=== PATIENT | male | born 1980 | race Caucasian/White ===

== ENCOUNTER 2019-11-07 08:17 | Outpatient (CLI) | payer OTHER ==
--- NOTE | 2019-11-07 10:38 | MRI ---
MRI Cervical spine without contrast: HISTORY: Paresthesias of upper extremities. Tingling and numbness in bilateral arms. COMPARISON: None FINDINGS: The craniocervical junction is unremarkable. No significant cervical cord signal abnormality. Paravertebral soft tissues have a normal appearance and normal signal intensity. C1-2:No significant stenosis. C2-3: There is no disc bulge or disc herniation. The central spinal canal and neural foramina are pat ent. C3-4: There is a mild disc osteophyte complex which narrows the ventral subarachnoid space. Neural fo ramina are patent. C4-5: There is no disc bulge or disc herniation. The central spinal canal and neural foramina are pat ent. C5-6: There is no disc bulge or disc herniation. The central spinal canal and neural foramina are pat ent. C6-7: There is no disc bulge disc herniation. The central spinal canal and neural foramina are patent . C7-T1: There is no disc bulge or disc herniation. The central spinal canal and neural foramina are pa tent. T1-2: Axial imaging was not obtained to this level, no disc bulge or disc herniation is seen. Neural foramina appear grossly patent. T2-3: There is a minimal disc bulge at this level. There is a low T1 and T2-weighted signal intensity structure seen in the posterior aspect of the central canal which does appear to be extradural measuring 17 mm craniocaudal x9 mm AP. Axial imaging was not obtained through this level. This does r esult in effacement of the posterior aspect of the subarachnoid space and does appear to contact the posterior aspect of the spinal cord which in combination with mild disc bulge does results in at least mild mass effect on the spinal cord at this level. This area was not adequately imaged on this exam, and MRI of thoracic spine is recommended. IMPRESSION: 1. Incomplete imaging at the T2-3 level which is only seen on sagittal images. However, there is a lo w signal intensity structure seen in the posterior aspect of the central canal which does appear extradural and probably represents a prominent dural-based calcification. This does appear to result in mild mass effect on the spinal cord this level, without cord signal abnormality appreciated. However, axial imaging was not obtained through this level. MRI thoracic spine is recommended for fur ther evaluation with axial imaging obtained through this level. 2. Mild disc degenerative changes at the C3-4 level, but there is no significant central canal or devonte ral foraminal narrowing at this level.
== END 2019-11-07 08:18 | disposition home or self-care (01) ==
LOC: MRI 08:17
PROVIDERS: ATTEND Surgery
DX: R20.2 Paresthesia of skin (principal); M50.31 Other cervical disc degeneration, high cervical region
CPT/HCPCS: 72141

== ENCOUNTER 2019-11-07 09:33 | Outpatient (CLI) | payer OTHER ==
[2019-11-07 12:06] LABS: Hemoglobin 15.2 g/dL (14.0-18.0); Mean Corpuscular HGB CONC 34.2 g/dL (32.0-36.0); Mean Corpuscular Hemoglobin 29.2 pg (27.0-31.0); Mean Corpuscular Volume 85.5 fL (78.0-98.0); Mean Platelet Volume 8.2 fL (7.4-10.4); Platelet Count 236 thou/uL (130-400); RBC Distribution Width 13.6 % (11.5-14.5); Red Blood Cell (RBC) Count 5.21 mill/uL (4.70-6.10); White Blood Cell (WBC) Count 8.8 thou/uL (4.8-10.8)
[2019-11-07 12:12] LABS: INR-International Normal Ratio 0.9; PTT 26.3 SEC (22.9-36.1); Prothrombin Time 12.6 SEC (12.0-14.7)
[2019-11-07 12:23] LABS: Anion Gap 16 mmol/L (10-20); BUN (Urea Nitrogen) 12 mg/dL (8.9-20.6); Calc. Creatinine Clearance 0 mL/min (70-130); Carbon Dioxide 25 mmol/L (22-29); Chloride 101 mmol/L (98-107); Estimated GFR-MDRD Greater than 90; Glucose 219 mg/dL (70-105); Potassium 4.8 mmol/L (3.5-5.1); Sodium 137 mmol/L (136-145)
== END 2019-11-07 09:34 | disposition home or self-care (01) ==
LOC: LABBT 09:33
PROVIDERS: ATTEND Surgery
DX: Z01.818 Encounter for other preprocedural examination (principal); M48.062 Spinal stenosis, lumbar region with neurogenic claudication; M54.5 Low back pain
CPT/HCPCS: 80048; 85027; 85610; 85730; 93005; 93010

== ENCOUNTER 2019-11-08 20:03 | Inpatient (IN) | payer OTHER ==
[2019-11-08] MEDS ORDERED: Pantoprazole 40 MG VIAL ONE (20:58)
[2019-11-08] MEDS ORDERED: Dexamethasone 10 MG/ML VIAL ONE (20:58)
--- NOTE | 2019-11-08 21:46 | CT ---
CT of the thoracic spine: 11/08/2019 HISTORY: Paralysis TECHNIQUE: Axial CT imaging at 3.75 mm intervals through the thoracic spine with coronal and sagittal reformatted imaging FINDINGS: Evaluation for central canal and/or neural foraminal stenosis is limited on routine CT exam ination. No significant anterolisthesis or retrolisthesis. The visualized lung parenchyma appears grossly unremarkable. Midline prominent osteophyte formation noted posterior to the thecal sac at the T2-3 level. Mild disc osteophyte formation noted at T2-3 as well. At T2-3 there is at least moderate central canal stenosis. Prominent left-sided facet hypertrophy at T3-4 with associated severe left-sided neural foraminal maru nosis. At T4-5 there is prominent facet hypertrophy on the right with severe right neural foraminal stenosis. There is also prominent posterior osteophyte formation with moderate/severe central canal s tenosis, particularly on the right. There is posterior osteophyte at T5-6 and T6-7 with at least mild central canal stenosis. There is anterior osteophyte formation at T6-7. Mild posterior osteophyte formation noted at T7-8. At T9-10 there is mild central posterior osteophyt e. There is multilevel anterior osteophyte formation to the right of midline including the T6-7 through T9-10 levels. No acute fracture or dislocation. No worrisome lytic or blastic bone lesion. IMPRESSION: Degenerative change with significant multilevel central canal and neural foraminal stenos is, not optimally assessed on this examination. Significant central canal stenosis noted at T4-5 and to a lesser degree, T2-3. If symptoms persist, follow-up thoracic spine MRI suggested.
[2019-11-08 22:55] VITALS: BMI 46.9
[2019-11-09] MEDS ORDERED: Acetaminophen 325 MG TAB PO PRN (00:31)
[2019-11-09] MEDS ORDERED: HYDROcodone/Acetaminophen 5/325 mg Tablet PO PRN (00:31)
[2019-11-09] MEDS: Sodium Chloride 0.9% 1,000 ML IV SCH ×3 (01:11→23:57)
[2019-11-09] MEDS: Dexamethasone 4 MG TAB PO SCH ×5 (01:11→23:56)
[2019-11-09] MEDS: Loperamide HCl 2 MG CAP PO PRN ×5 (02:10→12:44)
[2019-11-09] MEDS ORDERED: Diazepam 5 MG TAB PO PRN (02:11)
--- NOTE | 2019-11-09 03:34 | HP ---
CHIEF COMPLAINT: Chronic lower extremity neurologic deficits, acute onset of arms paraesthesias and weakness. HISTORY OF PRESENT ILLNESS: Mr. Mendez is a 39-year-old gentleman, who is well known to our service, who presented to [facility] earlier this evening for complaints of acute onset, ascending paraesthesias up to level of his neck with associated arms paraesthesias bilaterally and weakness. Per ER report, the patient was essentially paralyzed from the neck down upon EMS arrival, with flaccid paralysis of the bilateral upper and lower extremities. Upon ED arrival, he was beginning to have return of sensation to his arms. The patient was recently seen by our team and is scheduled to undergo surgery on 11/10/2019. He will be undergoing L2 through S1 laminectomies, partial facetectomies and foraminotomies. The patient has longstanding weakness and paraesthesias in his bilateral lower extremities. Has previously rendered him with gait difficulties requiring use of walking cane to ambulate. More recently, he has been using a wheelchair over the past 4 to 5 days. The patient had an MRI of the cervical spine completed yesterday, which revealed degenerative disk disease and mild central stenosis at C3-C4, otherwise no significant cervical stenosis or other abnormalities of the cervical spine. However, on this MRI of the cervical spine, we were able to visualize a calcified ligament at the T2-T3 level with mild mass effect on the spinal cord. He has had no recent imaging of his thoracic spine completed. PHYSICAL EXAMINATION: I was unable to see the patient in the emergency department due to being called to an emergent surgery. I was able to observe him once he was admitted to the surgical floor and completed an exam at approximately 1 a.m. on 11/09/2019. GENERAL: The patient was awake, alert, and appropriate. NEUROLOGIC: He was able to move both his upper and lower extremities without difficulty. He had excellent strength throughout his upper and lower extremity myotomes bilaterally, with the exception of inability to dorsiflex or plantarflex his right foot. He states this is longstanding, and it has been observed during our prior examinations. The patient reports that he has subjective decreased sensation to pain and temperature of the left lower extremity. Gait was not assessed; however, the patient's nurse reports that he has been able to ambulate to the rest room and urinate without difficulty earlier this evening. IMPRESSION/DIAGNOSES: 1. Lumbar stenosis with chronic bilateral lower extremity paraesthesias and weakness, plan for L2-S1 laminectomies, partial facetectomies, and foraminotomies on 11/10/2019. 2. Acute onset upper extremity paraesthesias with paralysis, currently resolved. 3. 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 PLAN: I have discussed the patient's case and all imaging with Dr. Ellsworth. Plan at this time is to have a CT of the thoracic spine without contrast completed tonight, as well as an MRI of the thoracic spine completed in the morning. The patient exhibits some anxiety with having MRI completed, therefore, I have ordered Valium to be given 30 minutes prior to the MRI. The patient reports that he is having diarrhea, so I have ordered Imodium for this. Per nurse report, the patient has been able to ambulate to the rest room and void without difficulty. Therefore, I am holding a Paiz catheterization at this time; however, I have ordered q.4 hour bladder scan with in-and-out catheterization for findings of greater than 300 mL of urinary retention. So, the patient will require 3 in-and-out catheterizations. We will then place a Paiz. The patient may ambulate with assistance. The patient was given a loading dose of 10 mg Decadron in the emergency department. I have subsequently ordered 6 mg Decadron q.4 hours as well as daily Protonix. Plan at this time is to get imaging of the thoracic spine and remove the calcified ligament in addition to his previously planned lumbar surgery for Sunday. We will see patient tomorrow to further review the surgical plan; however, the patient has been informed of this change tonight when I saw him. He states understanding and all questions were answered. We will follow up with patient in the morning, or sooner for any neurologic changes or concerns. This was a 50-minute initial patient encounter, in which greater than 50% of the time was spent in counseling. The remaining time was spent in review of records, imaging, evaluation of the patient, examination, and formulation of a plan. Job ID: [id number]
[2019-11-09] MEDS ORDERED: Diazepam 5 MG TAB PO SCH (04:00)
--- NOTE | 2019-11-09 11:58 | MRI ---
EXAM: MRI thoracic spine without contrast HISTORY: Abnormality seen in the posterior canal at the T2/3 level on the cervical MRI performed rece ntly. COMPARISON: MRI cervical spine 11/07/2019 TECHNIQUE: Multiplanar multisequence MR images were obtained of the thoracic spine without contrast. FINDINGS: This exam is limited secondary to motion artifact. The vertebral bodies and intervertebral discs demonstrate normal height and alignment without fractur e or subluxation. Generalized disc desiccation is seen. The visualized cord demonstrates normal signal throughout. The prevertebral soft tissues are unremarkable. No paraspinal soft tissue abnormality is seen. T1/2: No significant posterior bulge or protrusion. No posterior facet arthrosis. No central canal stenosis. No neural foraminal stenosis. T2/3: No significant posterior bulge or protrusion. Moderate bilateral posterior facet arthrosis. Th is causes a prominent seen posteriorly on the prior MRI. Moderate central canal stenosis. No neural foraminal stenosis. T3/4: Minimal disc osteophyte complex. No posterior facet arthrosis. No central canal stenosis. No neural foraminal stenosis. T4/5: Small disc osteophyte complex. Moderate bilateral posterior facet arthrosis. Moderate central canal stenosis. No neural foraminal stenosis. T5/6: A tiny central protrusion is seen. No posterior facet arthrosis. Mild central canal stenosis. No neural foraminal stenosis. T6/7: No significant posterior bulge or protrusion. No posterior facet arthrosis. No central canal stenosis. No neural foraminal stenosis. T7/8: No significant posterior bulge or protrusion. No posterior facet arthrosis. No central canal stenosis. No neural foraminal stenosis. T8/9: No significant posterior bulge or protrusion. No posterior facet arthrosis. No central canal stenosis. No neural foraminal stenosis. T9/10: A tiny central protrusion is seen. No posterior facet arthrosis. Mild central canal stenosis . No neural foraminal stenosis. T10/11: No significant posterior bulge or protrusion. Mild to moderate bilateral posterior facet art hrosis. Mild to moderate central canal stenosis. No neural foraminal stenosis. T11/12: No significant posterior bulge or protrusion. No posterior facet arthrosis. No central tere l stenosis. No neural foraminal stenosis. T12/L1: No significant posterior bulge or protrusion. No posterior facet arthrosis. No central tere l stenosis. No neural foraminal stenosis. IMPRESSION: Degenerative changes of the thoracic spine as above. The abnormality seen on prior cervical spine MRI represents posterior facet disease at T2/3.
--- NOTE | 2019-11-09 12:38 | PRG ---
DATE OF SERVICE: 11/09/2019 Mr. Mendez is known to me as we had planned for L2 to S1 laminectomies, partial facetectomies, and foraminotomies tomorrow. He presented with a concern of thoracic myelopathy and in fact, a cervical MRI demonstrated no worrisome stenosis in the cervical spine, however, what appeared to be calcified extradural mass at T2, T3. CT scan was done and this also demonstrates likely calcification of T4, T5. We are arranging for an MRI of the thoracic spine without and with contrast today and we will make plans in regard to the lumbar laminectomy and we will also do a thoracic laminectomy at whatever levels need to be addressed. This will also include extradural mass resection. Job ID: [id number]
[2019-11-09 18:26] LABS: #Lymphocytes 0.9 thou/uL (1.20-3.40); #Monocytes 0.7 thou/uL (0.11-0.59); #Neutrophils 13.2 thou/uL (1.40-6.50); %Eosinophils 0.2 % (0.0-10.0); %Lymphocytes 6.1 % (21.0-51.0); %Neutrophils 88.8 % (42.0-75.0); Hemoglobin 14.8 g/dL (14.0-18.0); Mean Corpuscular HGB CONC 32.6 g/dL (32.0-36.0); Mean Corpuscular Hemoglobin 27.7 pg (27.0-31.0); Mean Corpuscular Volume 85.1 fL (78.0-98.0); Mean Platelet Volume 7.9 fL (7.4-10.4); Platelet Count 257 thou/uL (130-400); RBC Distribution Width 13.8 % (11.5-14.5); Red Blood Cell (RBC) Count 5.34 mill/uL (4.70-6.10); White Blood Cell (WBC) Count 14.8 thou/uL (4.8-10.8)
[2019-11-09 18:33] LABS: PTT 24.8 SEC (22.9-36.1); Prothrombin Time 13.3 SEC (12.0-14.7)
[2019-11-09 18:50] LABS: Anion Gap 15 mmol/L (10-20); BUN (Urea Nitrogen) 19 mg/dL (8.9-20.6); Calc. Creatinine Clearance 191 mL/min (70-130); Calcium 10.1 mg/dL (7.8-10.44); Carbon Dioxide 24 mmol/L (22-29); Chloride 103 mmol/L (98-107); Estimated GFR-MDRD 84; Glucose 279 mg/dL (70-105); Potassium 4.9 mmol/L (3.5-5.1); Sodium 137 mmol/L (136-145)
[2019-11-10] MEDS ORDERED: Milk Of Magnesia 30 ML UDCUP PO PRN (00:34)
[2019-11-10] MEDS ORDERED: Docusate 100 MG CAP PO PRN (00:34)
[2019-11-10] MEDS ORDERED: hydrALAZINE 20 MG/ML VIAL SLOW IVP PRN (00:35)
[2019-11-10] MEDS ORDERED: Bisacodyl 5 MG TAB PO PRN (00:35)
[2019-11-10] MEDS ORDERED: Bismuth Subs 17.5 mg/mL Susp PO PRN (00:38)
[2019-11-10] MEDS: Sodium Chloride 0.9% 1,000 ML IV SCH ×2 (05:09→18:47)
[2019-11-10] MEDS: Dexamethasone 4 MG TAB PO SCH ×4 (05:42→23:19)
[2019-11-10] MEDS ORDERED: Sodium Chloride 0.9% 10 ML ONE ×2 (08:45→09:33)
[2019-11-10] MEDS ORDERED: Thrombin 5000 UNITS/5 ML VIAL ONE ×2 (08:45→12:58)
[2019-11-10] MEDS ORDERED: Bacitracin Zinc Ointment 30 gm TUBE ONE (08:45)
--- NOTE | 2019-11-10 09:30 | PRG ---
DATE OF SERVICE: 11/10/2019 Mr. Mendez is seen to discuss surgical procedure. Dr. Ellsworth and her team has reviewed the patient's cervical and thoracic imaging, and his cervical spine imaging shows some degenerative disk disease, but otherwise nothing that needs to be surgically addressed. In regard to the patient's thoracic spine, he has a severe central canal stenosis at T2-T3 and T4-T5 and these will be addressed during his surgery today. The updated procedure will be T2-T3 laminectomy and T4-T5 laminectomies, partial facetectomies, foraminotomies, and continue with original procedure of L2-S1 laminectomies, partial facetectomies, and foraminotomies. I discussed the risks and benefits in great detail with the patient and his and answered all their questions. They wished to proceed with surgery that will be later today. I have also discussed the patient's appropriate positioning and again risks and benefits. We will proceed to the operating room and the OR has been updated on the updated procedure. Please call with any changes in the patient's neurologic status, although he remains neurologically intact at this time. Job ID: [id number]
[2019-11-10] MEDS ORDERED: Rocuronium Bromide 10 MG/ML (10ML VIAL) ONE (10:19)
[2019-11-10] MEDS ORDERED: PROPOFOL 200 MG/20 ML VIAL ONE (10:19)
[2019-11-10] MEDS ORDERED: Ondansetron PF 4 MG/2 ML Vial ONE (10:19)
[2019-11-10] MEDS ORDERED: PHENYLEPHRINE-NS 100 MCG/ML 10 ML SYRINGE ONE (10:19)
[2019-11-10] MEDS ORDERED: Glycopyrrolate 0.2 MG/ML 5 ML SYRINGE ONE (10:19)
[2019-11-10] MEDS ORDERED: Lidocaine 1% PF 5 ML VIAL ONE (10:19)
[2019-11-10] MEDS ORDERED: Vecuronium 10 MG VIAL ONE ×2 (10:19→13:20)
[2019-11-10] MEDS ORDERED: Labetalol HCl 100 MG/20 ML VIAL ONE (10:19)
[2019-11-10] MEDS ORDERED: ePHEDrine/0.9% NaCl/PF SYRINGE 50 mg/10 ml ONE (10:19)
[2019-11-10] MEDS ORDERED: Fentanyl 100 MCG/2 ML VIAL ONE ×6 (10:21→17:37)
[2019-11-10] MEDS ORDERED: Midazolam HCl 2 mg/2 ml Vial ONE (10:41)
--- NOTE | 2019-11-10 11:01 | PRG ---
DATE OF SERVICE: 11/10/2019 Mr. Mendez was admitted for progressive thoracic myelopathy. An MRI performed of the cervical spine demonstrates no worrisome neural canal compromise. However, unfortunately, at T2-T3 and T4-T5, he has significant spinal cord compression with signal abnormality in his cord, in particular at T4-T5. This is the culprit of his symptoms of paraparesis and loss of sensation over the weekend. As such, in addition to the multilevel lumbar decompression L2 through S1, I have also recommended T2-T3 and T4-T5 laminectomies, partial facetectomies, and foraminotomies. He understands the risks are up to and including, but not limited to, wound healing issues such as infection, dehiscence, CSF leak. He wishes that we proceed with the surgery. Job ID: [id number]
[2019-11-10] MEDS ORDERED: Rocuronium Bromide 50 MG/5 ML VIAL ONE (13:20)
[2019-11-10] MEDS ORDERED: SUGAMMADEX SODIUM 500 MG/5 ML VIAL ONE (13:21)
[2019-11-10] MEDS: CEFAZOLIN 2 GM in Premix Bag 1 BAG IVPB SCH (21:33)
[2019-11-10] MEDS: Gabapentin 300 MG CAP PO SCH (21:33)
[2019-11-10] MEDS: HYDROcodone/Acetaminophen 5/325 mg Tablet PO PRN (23:19)
[2019-11-11] MEDS ORDERED: Diazepam 10 MG/2 ML SYRINGE IVP PRN (00:21)
[2019-11-11] MEDS: HYDROcodone/Acetaminophen 5/325 mg Tablet PO PRN (05:28)
[2019-11-11] MEDS: CEFAZOLIN 2 GM in Premix Bag 1 BAG IVPB SCH ×3 (05:29→21:42)
[2019-11-11] MEDS: Dexamethasone 1 MG TAB PO SCH ×4 (05:29→23:44)
[2019-11-11 06:22] LABS: Anion Gap 15 mmol/L (10-20); BUN (Urea Nitrogen) 21 mg/dL (8.9-20.6); Calc. Creatinine Clearance 175 mL/min (70-130); Calcium 8.4 mg/dL (7.8-10.44); Carbon Dioxide 22 mmol/L (22-29); Chloride 105 mmol/L (98-107); Estimated GFR-MDRD 76; Glucose 139 mg/dL (70-105); Potassium 4.4 mmol/L (3.5-5.1); Sodium 138 mmol/L (136-145)
[2019-11-11 06:29] LABS: Band 1 % (5-11); Hemoglobin 12.7 g/dL (14.0-18.0); Hypochromia SLIGHT = 6-15 cells (100X) (0-5/hpf); Lymphocytes 6 % (21-51); MDiff Complete? YES; Mean Corpuscular HGB CONC 29.8 g/dL (32.0-36.0); Mean Corpuscular Volume 87.2 fL (78.0-98.0); Mean Platelet Volume 7.8 fL (7.4-10.4); Monocytes 10 % (0-10); Neutrophil 83 % (42-75); Platelet Count 246 thou/uL (130-400); Platelet Morphology Comment Appears Adequate; RBC Distribution Width 14.1 % (11.5-14.5); Red Blood Cell (RBC) Count 4.89 mill/uL (4.70-6.10); White Blood Cell (WBC) Count 21.9 thou/uL (4.8-10.8)
[2019-11-11] MEDS: Sodium Chloride 0.9% 1,000 ML IV SCH ×2 (06:46→08:55)
[2019-11-11] MEDS ORDERED: Morphine 2 MG/ML SYRINGE SLOW IVP PRN (06:52)
[2019-11-11] MEDS: Lisinopril/Hydrochlorothiazide 10 mg/12.5 mg Tablet PO SCH (08:56)
[2019-11-11] MEDS: Escitalopram Oxalate 10 mg Tablet PO SCH (08:56)
[2019-11-11] MEDS ORDERED: Non-Formulary Item 1 EACH (Omeprazole [Omeprazole] 40 MG) PO SCH (09:00)
--- NOTE | 2019-11-11 09:47 | PRG ---
DATE OF SERVICE: 11/11/2019 This is Ajith Mulligan PA-C dictating a report for Tono Ellsworth MD. This is a postoperative recheck. Mr. Mendez is postoperative day #1 having undergone multi-level thoracic laminectomies and multilevel lumbar laminectomies. The patient overall is doing well. He has had significant improvement in his dorsiflexion and plantar flexion weakness on the right and improvement in right leg strength. He is having some rotator cuff irritation on the right, likely secondary to positioning in the OR. His strength is limited in overhead lifting and some biceps strength, but it appears though this is secondary to pain. It does appear to have improved today compared to his exam yesterday. Again, significantly improved strength into the right dorsiflexion and plantar flexion in right leg. We will order bilateral lower extremity ultrasounds. He may begin to work with therapies, ambulate as tolerated. We will continue to follow him for one more day. Hopefully, we will work towards discharge in the next few days whether it be home with home health versus inpatient rehab and these consults have been placed. Please call with any changes in the patient's neurologic status. Otherwise, his glucose has improved. We have begun him on a 4-day Decadron taper starting yesterday. Labs are stable at this time. Job ID: [id number]
--- NOTE | 2019-11-11 10:52 | OP ---
DATE OF PROCEDURE: 11/10/2019 [employer]ICAL PLANT OPERATOR: Shikha Briggs PA-C. PREPROCEDURE DIAGNOSES: Thoracic myelopathy with T2-T3 and T4-T5 spinal cord compression with lumbar radiculopathy and multilevel lumbar stenosis at L2 through S1 with acute paraplegia, recovered with sensory abnormality T2 distally with low back and leg pain and gait difficulty. POSTPROCEDURE DIAGNOSES: Thoracic myelopathy with T2-T3 and T4-T5 spinal cord compression with lumbar radiculopathy and multilevel lumbar stenosis at L2 through S1 with acute paraplegia, recovered with sensory abnormality T2 distally with low back and leg pain and gait difficulty. PROCEDURES PERFORMED: 1. T2-T3 laminectomy, partial facetectomy, and foraminotomy for calcified ligament removal. 2. T4-T5 laminectomy and partial facetectomy for calcified ligament removal. 3. L2-L3, L3-L4, L4-L5, L5-S1 laminectomies, partial facetectomies, and foraminotomies for multilevel lumbar stenosis. DESCRIPTION OF PROCEDURE: After informed consent was obtained from the patient, the patient was brought to the OR. Law Nilda was secured to the skull after general anesthesia. He was positioned prone on the OR table. His arms were tucked. He is morbidly obese, his positioning was challenging without question given the simple girth of the patient; however, we were satisfied with our positioning and a linear marlyn was drawn dorsally over the T2-T3 and T4-T5 segment along with the L2 through S1 dorsal spines. These regions were sterilely cleansed, prepared, and draped. We started at the T2 through T5 segment. The wound was then opened following sterile cleansing, preparation, and draping and the T2, T3, T4, T5 segments were exposed. Localization film confirmed our area of interest. We then performed T2-T3 laminectomies and T4-T5 laminectomies with decompression of the spinal cord and nerve roots. Calcified ligament was removed at T2-T3 and T4-T5 with excellent decompression of the common dural tube. Hemostasis was maximized. The wound was copiously irrigated. We then turned our attention to the incision from L2 through S1 and this region was all opened up and the L2, L3, L4, L5, and S1 dorsal spines and lamina were exposed. Localization film confirmed our area of interest there as well. We performed L2, L3, L4, L5, S1 laminectomies, partial facetectomies, and foraminotomies with excellent decompression of the common dural tube and the nerve roots. Copious irrigation maximized, hemostasis occurred. Vancomycin powder was placed on both wounds. They were closed. The patient then emerged from anesthesia. Job ID: [id number]
--- NOTE | 2019-11-11 11:27 | ULT ---
EXAM: Bilateral lower extremity venous duplex: Deep veins evaluated with color Doppler, spectral analysis, and compression. INDICATIONS: Recent surgery, impaired mobility FINDINGS: Deep veins interrogated include common femoral vein, femoral vein, popliteal vein, and post erior tibial vein. These veins show normal compression and blood flow. No evidence of DVT. IMPRESSION: Negative Bilateral venous duplex exam.
[2019-11-11] MEDS: HYDROcodone/Acetaminophen 7.5/325 mg Tablet PO PRN ×2 (12:57→18:24)
[2019-11-11] MEDS: tiZANidine HCl 4 MG TAB PO PRN ×2 (12:57→21:41)
--- NOTE | 2019-11-11 13:27 | PRG ---
DATE OF SERVICE: 11/11/2019 Mr. Mendez is postoperative day #1 from multilevel thoracic decompression and multilevel lumbar laminectomy. He has improvement in his leg pain, but his body habitus is really the issue at this point. I have told him that he has to lose weight. He has asked for [employer] again this morning. I have told him that he can not have that. He does have weakness in the right leg In review of his medications, we are going to start a Decadron taper and initiate rehabilitation. He has had chest pain overnight, although this is muscular. EKG is sinus tachycardia. Job ID: [id number]
[2019-11-11] MEDS: Gabapentin 300 MG CAP PO SCH (21:41)
[2019-11-12] MEDS: CEFAZOLIN 2 GM in Premix Bag 1 BAG IVPB SCH (05:14)
[2019-11-12] MEDS: Sodium Chloride 0.9% 1,000 ML IV SCH ×2 (05:14→11:19)
[2019-11-12] MEDS: Dexamethasone 1 MG TAB PO SCH ×3 (05:14→18:55)
--- NOTE | 2019-11-12 09:30 | EKG ---
Test Reason : STAT Blood Pressure : / mmHG Vent. Rate : 112 BPM Atrial Rate : 112 BPM P-R Int : 158 ms QRS Dur : 074 ms QT Int : 320 ms P-R-T Axes : 060 043 024 degrees QTc Int : 436 ms Sinus tachycardia Otherwise normal ECG When compared with ECG of 07-NOV-2019 11:40, (Unconfirmed) Sinus rhythm has replaced Atrial fibrillation T wave inversion no longer evident in Inferior leads Confirmed by DR. Pierre TELLO ([id number]) on 11/12/2019 9:29:41 AM Referred By: EVERARDO FROST Confirmed By:DR. Pierre TELLO
[2019-11-12] MEDS: Lisinopril/Hydrochlorothiazide 10 mg/12.5 mg Tablet PO SCH (11:15)
[2019-11-12] MEDS: Escitalopram Oxalate 10 mg Tablet PO SCH (11:16)
--- NOTE | 2019-11-12 14:43 | PRG ---
DATE OF SERVICE: 11/12/2019 This is Ajith Mulligan PA-C dictating a report for Toon Ellsworth MD. SUBJECTIVE: Mr. Mendez is postoperative day #2, having undergone multilevel thoracic and lumbar laminectomies. The patient feels overall that he is doing better. He states he was able to get up by himself and walk to the bathroom. His main complaint today is wanting to have a bowel movement. I have given him appropriate medication as well as tips on how to combat constipation. I think most of this is secondary to narcotics and on general anesthesia. The patient has no leg pain and improvement in his thoracic and lumbar incisions as well as his right shoulder pain. He looks significantly more comfortable today than he did yesterday. I have counseled him on tobacco cessation as he does have a can of dip in his room. I should say he has good strength in all the extremities with improvement in his dorsiflexion, plantar flexion of the right leg. We have discussed the possibility of home with home health tomorrow versus inpatient rehab to see what inpatient rehab screen says. The patient's was also updated at bedside. Job ID: [id number]
[2019-11-12] MEDS: tiZANidine HCl 4 MG TAB PO PRN ×2 (14:47→22:14)
[2019-11-12] MEDS: Gabapentin 300 MG CAP PO SCH (20:27)
[2019-11-12] MEDS ORDERED: Enoxaparin Sodium 40 MG/0.4 ML SYRINGE SC SCH (21:00)
[2019-11-13] MEDS: Dexamethasone 1 MG TAB PO SCH ×3 (00:03→11:05)
[2019-11-13] MEDS: Escitalopram Oxalate 10 mg Tablet PO SCH (08:50)
[2019-11-13] MEDS: Lisinopril/Hydrochlorothiazide 10 mg/12.5 mg Tablet PO SCH (08:50)
[2019-11-13 13:00] VITALS: BP 132/83; TEMP 99.4
[2019-11-13] MEDS: HYDROcodone/Acetaminophen 7.5/325 mg Tablet PO PRN (15:25)
--- NOTE | 2019-11-13 15:51 | DIS ---
DATE OF ADMISSION: 11/08/2019 DATE OF DISCHARGE: 11/13/2019 This is Ajith Mulligan PA-C dictating a report for Tono Ellsworth MD. DISCHARGE DIAGNOSES: 1. Thoracic and lumbar stenosis with radiculopathy. 2. Morbid obesity. 3. Tobacco abuse. 4. Diabetes mellitus. 5. Depressive disorder. 6. Hypertension. 7. Gastroesophageal reflux disease. HOSPITAL COURSE: Mr. Mendez was admitted on 11/08/2019 to undergo elective thoracic and lumbar laminectomies. The patient had surgery on 11/10/2019 and the surgery was without complication. He immediately had pain relief of bilateral lower extremity symptoms as well as improvement in paresthesias into the torso, bilateral lower extremities. At the time of discharge today, the patient had excellent strength into the left lower extremity with mild weakness into the right lower extremity. He had significant improvement in his right dorsiflexion and plantar flexion. He is able to walk the halls. He has met criteria for discharge and we will send him home and set up home health therapies. He and his were very pleased with his outcome postoperatively. He is on a Decadron taper and will finish this tonight 1 mg p.o. q.6 hours again with only two pills left. Appropriate patient education and outpatient followups were provided to the patient, and again at the time of discharge, he was very pleased with his outcome postoperatively with complete resolution of bilateral lower extremity pain and paresthesias. Job ID: [id number]
== END 2019-11-13 15:38 | disposition home health service (06) | DRG 519 ==
LOC: ERS 20:03 → SURG B 22:17
PROVIDERS: ADMIT Surgery; ATTEND Surgery
PROC: 00NX0ZZ Release Thoracic Spinal Cord, Open Approach (ICD-10-PCS; principal; 2019-11-10)
PROC: 01NB0ZZ Release Lumbar Nerve, Open Approach (ICD-10-PCS; 2019-11-10)
PROC: 01NR0ZZ Release Sacral Nerve, Open Approach (ICD-10-PCS; 2019-11-10)
DX: M48.061 Spinal stenosis, lumbar region without neurogenic claudication (principal); G82.20 Paraplegia, unspecified; Z68.42 Body mass index [BMI] 45.0-49.9, adult; M48.04 Spinal stenosis, thoracic region; M54.16 Radiculopathy, lumbar region; M54.14 Radiculopathy, thoracic region; E66.01 Morbid (severe) obesity due to excess calories; E11.9 Type 2 diabetes mellitus without complications; F32.9 Major depressive disorder, single episode, unspecified; I10 Essential (primary) hypertension; K21.9 Gastro-esophageal reflux disease without esophagitis; E78.5 Hyperlipidemia, unspecified; F17.210 Nicotine dependence, cigarettes, uncomplicated; F43.10 Post-traumatic stress disorder, unspecified; G89.29 Other chronic pain
CPT/HCPCS: 36415; 72128; 72141; 72146; 76000; 80048; 85025; 85027; 85610; 85730; 86850; 86900; 86901; 93005; 93010; 93970; 96374; 96375; C9113; J0690; J1100; J1650; J2001; J2250; J2405; J2704; J3010; J3360; J3370; J3490; J8540

== ENCOUNTER 2019-11-21 09:07 | Inpatient (IN) | payer OTHER ==
[2019-11-21 11:12] LABS: #Basophils 0.1 thou/uL (0.0-0.2); #Eosinphils 0.2 thou/uL (0.0-0.7); #Lymphocytes 1.7 thou/uL (1.20-3.40); #Monocytes 0.9 thou/uL (0.11-0.59); #Neutrophils 8.8 thou/uL (1.40-6.50); %Basophils 0.5 % (0.0-1.0); %Eosinophils 1.7 % (0.0-10.0); %Lymphocytes 14.8 % (21.0-51.0); %Monocytes 7.9 % (0.0-10.0); %Neutrophils 75.2 % (42.0-75.0); Hemoglobin 12.5 g/dL (14.0-18.0); Mean Corpuscular HGB CONC 32.9 g/dL (32.0-36.0); Mean Corpuscular Hemoglobin 27.9 pg (27.0-31.0); Mean Corpuscular Volume 84.7 fL (78.0-98.0); Platelet Count 347 thou/uL (130-400); RBC Distribution Width 13.5 % (11.5-14.5); White Blood Cell (WBC) Count 11.7 thou/uL (4.8-10.8)
[2019-11-21 11:26] LABS: PTT 27.6 SEC (22.9-36.1); Prothrombin Time 13.6 SEC (12.0-14.7)
[2019-11-21 11:40] LABS: ALT (SGPT) 33 U/L (8-55); AST (SGOT) 20 U/L (5-34); Albumin 3.4 g/dL (3.5-5.0); Alkaline Phosphatase 102 U/L (40-110); Anion Gap 11 mmol/L (10-20); BUN (Urea Nitrogen) 12 mg/dL (8.9-20.6); Bilirubin, Total 0.5 mg/dL (0.2-1.2); Calc. Creatinine Clearance 0 mL/min (70-130); Calcium 9.3 mg/dL (7.8-10.44); Carbon Dioxide 30 mmol/L (22-29); Chloride 100 mmol/L (98-107); Estimated GFR-MDRD 85; Globulin 3.4 g/dL (2.4-3.5); Glucose 125 mg/dL (70-105); Potassium 4.3 mmol/L (3.5-5.1); Protein, Total 6.8 g/dL (6.0-8.3); Sodium 137 mmol/L (136-145)
--- NOTE | 2019-11-21 13:55 | HP ---
HISTORY OF PRESENT ILLNESS: The patient is a 39-year-old male with a past medical history of hypertension, GERD, thoracic and lumbar stenosis, who is status post T2 to T5 and L2 to S1 laminectomy by Dr. Ellsworth on 11/10/2019. Originally , the patient has been seen in the office for progressive claudicatory symptoms in the lower extremities and was scheduled for outpatient L2 to S1 laminectomy. However, he presented on 11/09/2019 with acute onset of dysesthesias from approximately the neck down. He was admitted by Dr. Ellsworth's team and evaluated with MRI of the cervical, thoracic and lumbar spine. Those MRIs were notable for mild degenerative changes and mild stenosis at C3-C4, calcified ligaments with stenosis and T2 signal changes from T2 to T5 and significant lumbar stenosis with central canal stenosis from L2 to S1. The patient was taken to the operating room on 10/14/2019 for treatment of his thoracic and lumbar stenosis with significant myelopathy. Following the surgery, he was transitioned to the Med/Surg floor where his symptoms improved significantly and he was essentially transitioned and discharged to home. His reports that he was doing well, but last night he slept flat on the couch instead of his usual recliner. She reports when he woke this morning around 7: 30 and tried to get off the couch, he had significant numbness and tingling from approximately mid abdomen down and weakness in his legs. This caused him to slide off the couch to the floor. He was brought to [facility] for further evaluation of these new acute dysesthesias and lower extremity weakness. PHYSICAL EXAMINATION: GENERAL: I examined the patient at the bedside. He is quite drowsy but will awaken on my exam. The patient's reports that he had recently taken gabapentin at 5:30 this morning, and this often causes this. He is oriented to person, place , and time. He appears to be in no acute distress. HEENT: Head normocephalic, atraumatic. Eyes: PERRLA. Extraocular movements intact. ENT: Oral mucosa is pink, intact, and moist. He does have some snoring breath sounds when he is asleep. CARDIAC: Regular rate and rhythm. PULMONARY: Symmetric chest expansion. No evidence of dyspnea. MUSCULOSKELETAL: No obvious deformities. His sensation is intact over the upper extremities. He has free active range of motion with 5/5 strength in both extremities. In the lower extremities, he admits to dysesthesia to approximately the T7 level at the mid abdomen down. He is significantly weak in the lower extremities, but is able to slightly plantar and dorsiflexion, slightly flex at the knees. He is noted to have some intermittent spasticity in the lower extremities. NEUROLOGIC: A and O x4. Lower extremity sensation changes and weakness per musculoskeletal exam. ASSESSMENT AND PLAN: Acute onset lower extremity weakness and dysesthesias, status post thoracic and lumbar laminectomies by Dr. Ellsworth on 11/10/2019. PLAN: We will plan to evaluate his acute neurologic change with stat MRI of the thoracic and lumbar spine with and without contrast. I will follow these results closely and then further formulate plan of care at that time. Addendum: MRI notable for large fluid collection presumably epidural hematoma with compression at the level of T2-T3 and T4-T5. Will take to the OR for epidural hematoma evacuation. Job ID: [id number] [facility] [facility]
[2019-11-21] MEDS ORDERED: Lorazepam 2 MG/ML VIAL ONE (14:00)
[2019-11-21] MEDS ORDERED: Dexamethasone 20 MG/5 ML VIAL ONE (14:40)
[2019-11-21] MEDS ORDERED: Lidocaine 1% PF 5 ML VIAL ONE (14:40)
[2019-11-21] MEDS ORDERED: ePHEDrine/0.9% NaCl/PF SYRINGE 50 mg/10 ml ONE (14:40)
[2019-11-21] MEDS ORDERED: Rocuronium Bromide 10 MG/ML (10ML VIAL) ONE (14:40)
[2019-11-21] MEDS ORDERED: PHENYLEPHRINE-NS 100 MCG/ML 10 ML SYRINGE ONE (14:40)
[2019-11-21] MEDS ORDERED: PROPOFOL 200 MG/20 ML VIAL ONE (14:40)
[2019-11-21] MEDS ORDERED: Succinylcholine Chloride 20 MG/ML 10 ml SYRINGE FS ONE (14:40)
[2019-11-21] MEDS ORDERED: Ondansetron PF 4 MG/2 ML Vial ONE (14:40)
--- NOTE | 2019-11-21 15:31 | MRI ---
MRI of thoracic spine with and without contrast: 11/21/2021 COMPARISON: Prior thoracic spine MRI 11/09/2019 HISTORY: Fall, paresthesias TECHNIQUE: Multiplanar multisequence MR imaging of the thoracic spine is provided with and without co ntrast FINDINGS: There is evidence of interval multilevel upper thoracic spine surgery, which includes bilat eral laminectomy at T2 and T4. Within the postoperative site there is a large lobulated complex T2 hyperintense and T1 iso-/hypointense fluid collection with epicenter within the posterior paraspinal musculature measuring at least 11.6 cm in craniocaudal dimension, 6.9 cm in AP dimension, and 7.2 cm in transverse dimension. The anterior components of this fluid collection abut the posterior dura at T2-3 and T4-5 with mass effect on the thecal sac posteriorly causing anterior deviation of the thecal sac and associated central canal stenosis at T2-3 and T4-5. T1-2: Intervertebral disc height and signal intensity appears within normal limits with no significan t central canal or neural foraminal stenosis. T2-3: Secondary to mass effect on the posterior aspect of the thecal sac from the above-described non specific fluid collection there is moderate/severe central canal stenosis. Bilateral facet hypertrophy with mild bilateral neural foraminal stenosis noted. T3-4: Facet hypertrophy noted on the left. There is associated moderate left neural foraminal stenosi s. No significant central canal or right neural foraminal stenosis. T4-5: Secondary to mass effect associated with the above-described postoperative fluid collection and mass effect upon the posterior aspect of the thecal sac there is severe central canal stenosis with flattening of the cervical cord. This is exacerbated by disc space narrowing with disc bulge. Th ere is probable focal area of abnormal signal intensity within the thoracic cord at the T4-5 level suggesting associated cord edema. Mild left and moderate right neural foraminal stenosis noted. T5-6: Small central disc protrusion with mild central canal stenosis. Bilateral facet hypertrophy wit h moderate left and mild right neural foraminal stenosis. T6-7: Small central disc protrusion with mild central canal stenosis. No significant neural foraminal stenosis. T7-8: Mild central canal stenosis on the basis of a small central disc herniation. No neural foramina l stenosis. T8-9: Bilateral facet hypertrophy. Mild bilateral neural foraminal stenosis. No central canal stenosi s. T9-10: Small central disc protrusion. Mild central canal stenosis. No neural foraminal stenosis. T10-11: Mild/moderate bilateral neural foraminal stenosis, right greater than left. No central canal stenosis. T10-11: No significant central canal or neural foraminal stenosis T12-L1: No significant central canal or neural foraminal stenosis. Postcontrast imaging demonstrates rim enhancement of the large postoperative fluid collection. In add ition, there is enhancement of the posterior dura from the C7-T1 level through the T6 level. The enhancement of the dura may be reactive in nature or could signify inflammatory/infectious process. N o abnormal enhancement is seen involving the thoracic cord, intervertebral discs, or imaged osseous structures. IMPRESSION: Large nonspecific postoperative fluid collection of the upper thoracic spine. This causes anterior deviation of the posterior dura/thecal sac in the areas of prior bilateral laminectomy with associated central canal stenosis, most prominent at T4-5. At the T4-5 level there is a focal ar ea of increased signal intensity within the thoracic cord suggesting cord edema on the basis of compressive myelopathy. Above-described fluid collection could be on the basis of sterile or infected seroma or hematoma. Surgical consultation advised. Dr. Estrada made aware at 3:25 PM 11/21/2019
[2019-11-21] MEDS ORDERED: Magnevist 469MG/ML 20 ML VIAL ONE ×2 (15:35)
[2019-11-21] MEDS ORDERED: Fentanyl 100 MCG/2 ML VIAL ONE (15:45)
--- NOTE | 2019-11-21 15:45 | MRI ---
MRI of the lumbar spine with and without contrast: 11/21/2019 COMPARISON: None HISTORY: Bilateral lower extremity radiculopathy, paresthesias TECHNIQUE: Multiplanar multisequence MR imaging of the lumbar spine obtained with and without contras t FINDINGS: There is a large complex heterogeneous T2 hyperintense and T1 hypointense fluid collection posterior to the thecal sac spanning the L2-3 axial level through the L5-S1 axial level. This complex fluid collection measures 2.3 cm in AP dimension, 11.6 cm in craniocaudal dimension and 2.3 c m in transverse dimension. On the postcontrast imaging the posterior aspect of the dura/thecal sac demonstrates enhancement from the axial level of L2-3 through the axial level of L5-S1. There is exte nsive prominent enhancement of the adjacent posterior paraspinal musculature from L2 level through S1 level. Findings may be related to sterile or infected fluid collection with associated inflammator y/reactive change involving the adjacent paraspinal musculature and adjacent dura. On the basis of 5 lumbar type vertebral bodies, the conus medullaris terminates at the T12-L1 level. T12-L1: Intervertebral disc height and signal intensity within normal limits with no significant cent ral canal or neural foraminal stenosis. L1-2: Bilateral facet hypertrophy. No significant central canal or neural foraminal stenosis. L2-3: There is mild central canal stenosis with mild mass effect on the posterior thecal sac associat ed with the above-described fluid collection. No significant neural foraminal stenosis. L3-4: There is disc desiccation and mild disc space narrowing with anterior osteophyte formation. Cheo ateral facet hypertrophy. Mild central canal stenosis. Moderate bilateral neural foraminal stenosis. L4-5: There is disc space narrowing and disc desiccation. Mild disc bulge with mild central canal maru nosis. Bilateral facet hypertrophy with moderate/severe right and mild left neural foraminal stenosis. L5-S1: Mild bilateral facet hypertrophy. Mild bilateral neural foraminal stenosis. No significant chasity tral canal stenosis. The postcontrast imaging demonstrates no abnormal enhancement involving the internal contents of the thecal sac, imaged osseous structures, or the intervertebral discs. The imaged retroperitoneal structures demonstrate no acute findings. The patient appears status post interval bilateral laminectomy from L2-3 through L5-S1. IMPRESSION: Multilevel postoperative change with nonspecific postoperative fluid collection extending from the axial level of L2-3 through the axial level of L5-S1. There are areas of central canal and neural foraminal stenosis as detailed above. Please see above discussion.
[2019-11-21] MEDS ORDERED: Thrombin 5000 UNITS/5 ML VIAL ONE (15:53)
[2019-11-21] MEDS ORDERED: Sodium Chloride 0.9% 0 ML ONE (15:53)
[2019-11-21] MEDS ORDERED: SUGAMMADEX SODIUM 500 MG/5 ML VIAL ONE (16:48)
[2019-11-21] MEDS ORDERED: tiZANidine HCl 4 MG TAB PO PRN (17:15)
[2019-11-21] MEDS ORDERED: Ondansetron PF 4 MG/2 ML Vial IVP PRN (17:15)
[2019-11-21] MEDS ORDERED: diphenhydrAMINE 50 MG/ML VIAL IVP PRN (17:15)
[2019-11-21] MEDS ORDERED: Promethazine HCl 25 MG/ML VIAL IM PRN ×2 (17:15→17:32)
[2019-11-21] MEDS ORDERED: Mag-Al 1200 mg/1200 mg/30 ML UDCUP PO PRN (17:15)
[2019-11-21] MEDS ORDERED: HYDROcodone/Acetaminophen 10/325 mg Tablet PO PRN ×2 (17:15)
[2019-11-21] MEDS ORDERED: Promethazine 25 MG TAB PO PRN (17:15)
[2019-11-21] MEDS ORDERED: traMADol HCl 50 MG TAB PO PRN ×2 (17:15)
[2019-11-21] MEDS ORDERED: Morphine 2 MG/ML SYRINGE SLOW IVP PRN (17:15)
[2019-11-21] MEDS ORDERED: Ondansetron HCl/PF 4 MG/2 ML Vial IVP PRN (17:32)
[2019-11-21] MEDS ORDERED: Meperidine HCl/PF 25 MG/ML VIAL SLOW IVP PRN (17:32)
[2019-11-21] MEDS ORDERED: PACU-Morphine 4MG/ML VIAL SLOW IVP PRN (17:32)
[2019-11-21] MEDS ORDERED: Promethazine HCl 25 MG/ML VIAL SLOW IVP PRN (17:32)
[2019-11-21] MEDS ORDERED: HYDROmorphone 2 MG/ML VIAL SLOW IVP PRN (17:32)
[2019-11-21] MEDS ORDERED: Morphine Sulfate 2 MG/ML SYRINGE SLOW IVP PRN (17:32)
--- NOTE | 2019-11-21 17:57 | PRG ---
DATE OF SERVICE: 11/21/2019 SUBJECTIVE: The patient is seen and examined. I agree with Ermelinda Hart's evaluation on 11/21/2019. The patient is a 39-year-old male who on November 10 underwent thoracic and lumbar laminectomies by Dr. Ellsworth. He was discharged in stable condition several days later. This morning he woke up with significant increase in neurologic dysfunction with both sensory and motor complaints. On exam, he was found to be weak throughout the lower extremities, although with some preserved motor function. There were significant dysesthetic symptoms as well. We requested urgent MRI scan of thoracic and lumbar spines. This was difficult given his very large body habitus and the need for sedation due to claustrophobia. MRI results suggest meaningful epidural hematoma in thoracic spine, likely compressive at least at the inferior laminectomy site. In the lumbar spine, the postoperative results are generally satisfactory without compression. IMPRESSION AND PLAN: I recommend urgent evacuation of thoracic hematoma for neurologic preservation. Job ID: [id number]
[2019-11-21 18:24] VITALS: BMI 42.0
[2019-11-21] MEDS: Dexamethasone 4 mg/ml Vial SLOW IVP SCH ×2 (18:43→23:57)
[2019-11-21] MEDS: CEFAZOLIN 2 GM in Premix Bag 1 BAG IVPB SCH (18:43)
[2019-11-21] MEDS: Sodium Chloride 0.9% 1,000 ML IV SCH (19:56)
--- NOTE | 2019-11-21 22:27 | OP ---
DATE OF PROCEDURE: 11/21/2019 POOLING OPERATOR: Ermelinda Hart PA-C PROCEDURE PERFORMED: Evacuation of thoracic hematoma. DESCRIPTION OF PROCEDURE: The patient was brought to the operating room and intubated. He was rolled in a prone position on gel-filled chest rolls. The previous thoracic incision was reopened and a dense hematoma was identified. This was evacuated completely at both the superior and inferior laminectomy elements. A complete decompression was achieved. The wound was extensively irrigated. MAC hemostasis was secured. Vancomycin powder was applied. Two drains were left in place. The wound was closed in anatomic layers. Job ID: [id number]
[2019-11-22] MEDS: CEFAZOLIN 2 GM in Premix Bag 1 BAG IVPB SCH ×3 (01:56→17:13)
[2019-11-22] MEDS: Dexamethasone 4 mg/ml Vial SLOW IVP SCH ×4 (05:34→23:34)
[2019-11-22] MEDS: Sodium Chloride 0.9% 1,000 ML IV SCH ×2 (05:35→20:11)
[2019-11-22] MEDS: Famotidine/PF 20 mg/2ml Vial SLOW IVP SCH (07:47)
[2019-11-22] MEDS ORDERED: FLU VACC QS2019-20(6MOS UP)/PF 60 MCG/0.5 ML SYRINGE IM ONE (09:00)
--- NOTE | 2019-11-22 10:08 | CON ---
DATE OF CONSULTATION: HISTORY OF PRESENT ILLNESS: Esteban Mendez is a 39-year-old obese gentleman, who came in yesterday to the hospital after he developed significant back pain and weakness in his legs. He had a laminectomy on 11/10, he is doing well. Emergency MRI revealed hematoma, he went to surgery last night, evacuation of the hematoma, doing much better. No pain or discomfort. PAST MEDICAL HISTORY: Pertinent for reflux, sleep apnea, hyperlipidemia, hypertension, borderline diabetes. PAST SURGICAL HISTORY: Previous surgery, back surgery T1-T3, L2-L5 surgery. SOCIAL HISTORY: Occasional alcohol. No drug abuse. Tobacco, quit smoking 20 years ago. He is [employer], retired. MEDICATIONS: Home medicine; 1. Tizanidine 2 mg. 2. Tramadol 50. 3. Gabapentin 600. 4. Omeprazole 40. 5. Hydrocodone. ALLERGIES: NONE. REVIEW OF SYSTEMS: Otherwise, negative. PHYSICAL EXAMINATION: GENERAL: No distress. VITAL SIGNS: Temperature 98, blood pressure 140/80, sats 95%, respiratory rate 20. CHEST: Decreased breath sounds. No wheezing. CARDIAC: Normal S1 and S2. No gallops. ABDOMEN: No masses. IMPRESSION: 1. Status post emergency evacuation of thoracic hematoma, some improvement in his pain and discomfort. 2. Sleep apnea, obesity, hypertension, and diabetes. 3. Pulmonary wang, stable enough to be transferred out of the ICU. Pulmonary will follow while in the ICU. Consultation note, 70 minutes, 50% direct patient care. Job ID: [id number]
--- NOTE | 2019-11-22 10:15 | PRG ---
DATE OF SERVICE: 11/22/2019 SUBJECTIVE: The patient is postoperative day #1 following evacuation of his thoracic epidural hematoma. He has been monitored in the IMCU with q.2h neuro checks. He has had some improvement in his lower extremity sensation and is now able to move some in the proximal lower extremities. His KELLY #1 had 40 mL out overnight, KELLY #2 60 mL out overnight. The patient reports his pain is well controlled. OBJECTIVE: GENERAL: On exam this morning, the patient is awake, alert, in no acute distress. VITAL SIGNS: Vitals have been stable. EXTREMITIES: His incision is clean, dry, and intact. There is a small amount of bright red blood in the KELLY. He has some increased proximal leg movement in the hips. He is slightly able to dorsi and plantar flex on the left foot. He does have abnormal sensation, but this appears to extend to the lower abdomen, has improved from prior exams. PLAN: We will changes neuro checks to q.4 and go ahead and transfer him to the Med/Surg floor. Inpatient rehab screen has been ordered. Case Management is assisting with discharge planning. The patient should begin PT and OT. We will be Izabel in place and KELLY is in place at this time. Job ID: [id number] MTDD
[2019-11-22] MEDS ORDERED: HYDROcodone/Acetaminophen 5/325 mg Tablet PO PRN (13:36)
[2019-11-22] MEDS ORDERED: traMADol HCl 50 MG TAB PO PRN (13:36)
[2019-11-22] MEDS ORDERED: CEFAZOLIN 2 GM in Premix Bag 1 BAG IVPB SCH (14:00)
[2019-11-22] MEDS ORDERED: hydrALAZINE 20 MG/ML VIAL SLOW IVP PRN (14:46)
--- NOTE | 2019-11-22 15:11 | CON ---
DATE OF CONSULTATION: PRIMARY CARE PROVIDER[facility] [place]. CHIEF COMPLAINT: Management of medical comorbidities. HISTORY OF PRESENT ILLNESS: Mr. Mendez is a pleasant 39-year-old gentleman, who was seen at [facility] on November 22, 2019. He underwent T2-T5 and L2-S1 laminectomy on November 10, 2019. He was subsequently transitioned and discharged home. He reports feeling better. He reports that he was walking with a walker at home. Two nights ago, he slept in a supine position on the couch. He was unable to get up from the couch. He did not have any sensation below his midabdomen. He also had weakness in both lower extremities. He was brought to [facility]. On August 21, 2020, he had evacuation of thoracic hematoma. Hospitalist Service has been consulted for management of medical comorbidities. He denies any chest pain. He reports that he is able to move both lower extremities to some extent, but is unable to lift them off the bed. He reports regaining some sensation in his left lower extremity. He denies any fevers or chills. He denies any nausea, vomiting, or diarrhea. REVIEW OF SYSTEMS: All systems were reviewed and found to be negative except for the pertinent positives mentioned above. PAST MEDICAL HISTORY: Gastroesophageal reflux disease, hypertension, posttraumatic stress disorder. PAST SURGICAL HISTORY: Circumcision and back surgery as described above. ALLERGIES: NO KNOWN DRUG ALLERGIES. HOME MEDICATIONS: 1. Escitalopram 10 mg daily. 2. Gabapentin 600 mg at bedtime. 3. Lisinopril/hydrochlorothiazide 10/12.5 mg daily. 4. Omeprazole 40 mg daily. 5. Tizanidine 2 mg daily. 6. Tramadol 50 mg as needed. 7. Max 5/325 mg one tablet every 6 hours as needed. FAMILY HISTORY: Congestive heart failure in his biological father. SOCIAL HISTORY: The patient quit smoking 2 weeks ago. He denies any alcohol use or recreational drug use. PHYSICAL EXAMINATION: GENERAL: Mr. Mendez is awake and alert, not in acute distress. He is morbidly obese, with a BMI of 42.1. VITAL SIGNS: Blood pressure is 130/80, pulse 96, respiratory rate 20, and oxygen saturation 96% on room air. He is afebrile. EYES: No scleral icterus, no conjunctival pallor. ENT: Moist mucosal membranes. No oropharyngeal erythema or exudates. NECK: Supple, nontender. Trachea is midline. RESPIRATORY: Accessory muscles of breathing are not active. Chest wall movements are symmetric bilaterally. Lungs are clear to auscultation without wheezes, rhonchi, or crepitations. CARDIOVASCULAR: S1 and S2 are heard, regular. Peripheral pulses palpable. ABDOMEN: Soft, nontender, bowel sounds are heard. NEUROLOGIC: Diminished sensation below the umbilicus and in both lower extremities. Power is 2+/5 in both lower extremities. MUSCULOSKELETAL: Normal power in bilateral upper extremities, diminished power in both lower extremities. SKIN: No rashes. LYMPHATIC: No cervical lymphadenopathy. PSYCHIATRIC: Normal mood, normal affect, patient is oriented to person, place, and time. LABORATORY DATA: Mr. Mendez's labs and investigations were reviewed. panel monitor shows normal sinus rhythm, no ST changes to suggest an acute coronary syndrome. Yesterday, he had mild leukocytosis with 11,700 white cells, of which 75% are neutrophils, normocytic anemia with hemoglobin 12.5, normal platelet count, INR 1.0, and an unremarkable comprehensive metabolic profile. ASSESSMENT AND PLAN: Mr. Mendez is a pleasant 39-year-old gentleman, who was seen at [facility] on November 22, 2019, for management of medical comorbidities. His problem list includes: 1. Hypertension: Resume lisinopril/hydrochlorothiazide, monitor vital signs and titrate antihypertensives as needed. Add p.r.n. IV hydralazine for management of blood pressure spikes. 2. Posttraumatic stress disorder: Continue escitalopram. 3. Gastroesophageal reflux disease: Continue proton-pump inhibitor. Many thanks for allowing me to participate in your patient's care. Please feel free to contact me with any questions or concerns. LEVEL OF RISK: Moderate. LEVEL OF COMPLEXITY: Moderate. Job ID: [id number]
--- NOTE | 2019-11-22 15:43 | PRG ---
DATE OF SERVICE: 11/22/2019 The patient was seen and examined. The patient's motor and sensory deficits in the legs have improved substantially since his surgery. His pain is well controlled. Both drains were functional with reasonable output and we will continue with these. Continue to mobilize and anticipate early next week and make a decision on rehab versus dismissal. Discussed at length with the patient and his . Job ID: [id number]
[2019-11-22] MEDS: Gabapentin 300 MG CAP PO SCH (20:47)
[2019-11-22] MEDS: Loperamide HCl 2 MG CAP PO PRN (20:47)
[2019-11-23] MEDS: CEFAZOLIN 2 GM in Premix Bag 1 BAG IVPB SCH ×3 (02:41→17:51)
[2019-11-23] MEDS: Dexamethasone 4 mg/ml Vial SLOW IVP SCH ×4 (05:20→23:03)
[2019-11-23] MEDS: Lisinopril/Hydrochlorothiazide 10 mg/12.5 mg Tablet PO SCH (08:39)
[2019-11-23] MEDS: Loperamide HCl 2 MG CAP PO PRN ×4 (08:39→21:03)
[2019-11-23] MEDS: Escitalopram Oxalate 10 mg Tablet PO SCH (08:40)
[2019-11-23] MEDS: Famotidine/PF 20 mg/2ml Vial SLOW IVP SCH (08:40)
[2019-11-23] MEDS: Sodium Chloride 0.9% 1,000 ML IV SCH ×2 (08:46→22:07)
[2019-11-23] MEDS ORDERED: tiZANidine HCl 4 MG TAB PO SCH (09:00)
--- NOTE | 2019-11-23 09:17 | PRG ---
DATE OF SERVICE: 11/23/2019 The patient is postoperative day #2, status post evacuation of his epidural thoracic hematoma. He has had significant improvement in his lower extremity sensation and strength. His KELLY output continues to trend down and KELLY #1 had approximately 10 mL out overnight. KELLY #2 had approximately 20 mL out overnight. He is complaining of some diarrhea intermittently with his antibiotic use. On exam this morning, he was sitting up in the bed, in no acute distress. He is moving his legs easily in the bed with 4-/5 strength throughout in the lower extremities. He does still have some dysesthesias, but these appear to be improved and extend only to the level of the mid thigh. We will go ahead and remove the lowest KELLY drain #1. We will leave KELLY #[address] We will continue his IV antibiotics, but I have added Imodium p.r.n. for diarrhea. We will leave his Paiz in place until he is mobilizing better. Continue PT, OT, rehab screen. Job ID: [id number]
--- NOTE | 2019-11-23 10:59 | PRG ---
DATE OF SERVICE: 11/23/2019 SUBJECTIVE: Denies pain, discomfort, or shortness of breath. OBJECTIVE: VITAL SIGNS: Temperature 98, pulse 79, blood pressure 125/73, saturations 98% on room air, respiratory rate 18. CHEST: No wheezing or crackles. CARDIAC: Normal S1 and S2. No gallops. ABDOMEN: No masses. IMPRESSION: Status post laminectomy day 2, evacuation of epidural thoracic hematoma, much improved. Pulmonary Critical Care wang, he is doing well. PLAN: Continue PT, supportive care. Pulmonary will follow at a distance. Call if needed. Job ID: [id number]
--- NOTE | 2019-11-23 12:34 | PDOC.HOSPP ---
- Subjective Encounter Date: 11/23/19 Encounter Time: 09:20 Subjective: Pt seen for followup re: hypertension. Diarrhea started last night. - Objective Vital Signs & Weight: Vital Signs (12 hours) Temp Pulse Resp BP BP Pulse Ox 11/23/19 11:35 97.9 F 89 20 135/75 94 L 11/23/19 08:39 100 125/73 11/23/19 07:36 98.7 F 100 18 125/73 99 11/23/19 03:20 97.8 F 84 18 129/79 94 L Weight Weight 276 lb 10.882 oz Most Recent Monitor Data Heart Rate from ECG 99 NIBP 112/87 NIBP BP-Mean 95 Respiration from ECG 26 SpO2 94 I&O: 11/22/19 11/23/19 11/24/19 06:59 06:59 06:59 Intake Total 5214 4029 Output Total 3415 3725 Balance 1799 304 Result Diagrams: 11/21/19 09:20 11/21/19 09:20 Additional Labs: Accuchecks 11/22/19 15:55 POC Glucose 252 H Labs and MARs reviewed by dc Hospitalist ROS - Review of Systems Cardiovascular: denies: chest pain, palpitations, orthopnea, paroxysmal noc. dyspnea, edema, light headedness Gastrointestinal: reports: diarrhea. denies: nausea, vomiting, abdominal pain, constipation, melena, hematochezia - Medication Medications: Active Medications Generic Name Dose Route Start Last Admin Trade Name Freq PRN Reason Stop Dose Admin Dexamethasone 4 mg 11/21/19 18:00 11/23/19 11:40 Decadron SLOW IVP 4 mg Q6HR MARV Administration Escitalopram Oxalate 10 mg 11/23/19 09:00 11/23/19 08:40 Lexapro PO 10 mg QAM MARV Administration Famotidine 20 mg 11/22/19 09:00 11/23/19 08:40 Pepcid SLOW IVP 20 mg DAILY MARV Administration Gabapentin 600 mg 11/22/19 21:00 11/22/19 20:47 Neurontin PO 600 mg HS MARV Administration Lisinopril/HCTZ 1 tab 11/23/19 09:00 11/23/19 08:39 Prinizide 10-12.5 PO 1 tab QAM MARV Administration Cefazolin Sodium/Dextrose 2 gm 50 mls @ 100 mls/hr 11/21/19 18:00 11/23/19 10 :46 / Device IVPB 50 mls 0200,1000,1800 MARV Administration Sodium Chloride 1,000 mls @ 75 mls/hr 11/21/19 17:15 11/23/19 08:46 Normal Saline 0.9% IV Not Given .[id number] MARV Loperamide HCl 2 mg 11/22/19 20:30 11/23/19 10:46 Imodium PO 2 mg PRN PRN Administration Diarrhea/Loose Stools Pantoprazole Sodium 40 mg 11/23/19 09:00 11/23/19 08:40 Protonix PO 40 mg DAILY MARV Administration Sodium Chloride 10 ml 11/21/19 17:15 11/23/19 11:40 Flush - Normal Saline IVF 10 ml PRN PRN Administration Saline Flush - Exam General - other findings: Morbid obesity Eye: anicteric sclera ENT: moist mucosa Neck: supple, no JVD Heart: RRR Respiratory: CTAB Gastrointestinal: soft, non-tender Extremities: no edema Skin: no rashes Psychiatric: normal affect, normal behavior Hosp A/P (1) Diarrhea Code(s): R19.7 - DIARRHEA, UNSPECIFIED Status: Acute (2) HTN (hypertension) Code(s): I10 - ESSENTIAL (PRIMARY) HYPERTENSION Status: Chronic (3) PTSD (post-traumatic stress disorder) Code(s): F43.10 - POST-TRAUMATIC STRESS DISORDER, UNSPECIFIED Status: Chronic (4) GERD (gastroesophageal reflux disease) Code(s): K21.9 - GASTRO-ESOPHAGEAL REFLUX DISEASE WITHOUT ESOPHAGITIS Status: Chronic - Plan plan discussed w/ family, PT/OT, out of bed/ambulate C. diff negative. Continue Imodium PRN. HTN controlled.
[2019-11-23] MEDS: Gabapentin 300 MG CAP PO SCH (20:18)
[2019-11-24] MEDS: CEFAZOLIN 2 GM in Premix Bag 1 BAG IVPB SCH ×3 (01:35→18:25)
[2019-11-24] MEDS: Dexamethasone 4 mg/ml Vial SLOW IVP SCH ×2 (05:00→11:22)
[2019-11-24] MEDS: Loperamide HCl 2 MG CAP PO PRN ×3 (05:00→19:06)
[2019-11-24] MEDS: Lisinopril/Hydrochlorothiazide 10 mg/12.5 mg Tablet PO SCH (09:47)
[2019-11-24] MEDS: Escitalopram Oxalate 10 mg Tablet PO SCH (09:49)
[2019-11-24] MEDS: Famotidine/PF 20 mg/2ml Vial SLOW IVP SCH (09:49)
[2019-11-24] MEDS: Sodium Chloride 0.9% 1,000 ML IV SCH (11:23)
--- NOTE | 2019-11-24 13:40 | PRG ---
DATE OF SERVICE: 11/24/2019 This is Ajith Mulligan PA-C dictating a report for Tono Ellsworth MD. Mr. Mendez is postoperative day #3 having undergone thoracic epidural hematoma evacuation. The patient is doing well postoperatively. He has not yet been walking. He states he feels as though his leg paresthesias and strength have significantly improved postoperatively. He is on Decadron, and we will begin a 4-day taper for him. He does have some diarrhea, but his C diff testing was negative. We will continue with the KELLY drain as it looks like it has put out 20 mL overnight. Continue with Ancef as well. The patient has been afebrile with systolic blood pressure in the 130s. The patient has voiced that he would like to go home in the next few days, so we will continue to have him work with therapies and hope for dismissal as early as tomorrow. We will discontinue his Paiz and begin bladder scans. Please call with any changes in the patient's neurologic status. Otherwise, the patient is in very good spirits, and he continues with excellent strength in the bilateral lower extremities. Job ID: [id number]
--- NOTE | 2019-11-24 15:44 | PDOC.HOSPP ---
- Subjective Encounter Date: 11/24/19 Encounter Time: 08:20 Subjective: Pt seen for followup re: diarrhea. Feels better. - Objective Vital Signs & Weight: Vital Signs (12 hours) Temp Pulse Resp BP BP Pulse Ox 11/24/19 15:11 98.5 F 71 18 149/81 H 97 11/24/19 11:20 97.7 F 91 20 137/89 97 11/24/19 09:47 72 137/87 11/24/19 07:33 98.0 F 69 20 137/87 94 L Weight Weight 276 lb 10.882 oz Most Recent Monitor Data Heart Rate from ECG 99 NIBP 112/87 NIBP BP-Mean 95 Respiration from ECG 26 SpO2 94 I&O: 11/23/19 11/24/19 11/25/19 06:59 06:59 06:59 Intake Total 4029 3352 Output Total 3725 3125 Balance 304 227 Result Diagrams: 11/21/19 09:20 11/21/19 09:20 Additional Labs: Labs and MARs reviewed by nm Hospitalist ROS - Review of Systems Gastrointestinal: reports: diarrhea. denies: nausea, vomiting, abdominal pain, constipation, melena, hematochezia Genitourinary: denies: dysuria, frequency, incontinence, hematuria, retention - Medication Medications: Active Medications Generic Name Dose Route Start Last Admin Trade Name Richieq PRN Reason Stop Dose Admin Escitalopram Oxalate 10 mg 11/23/19 09:00 11/24/19 09:49 Lexapro PO 10 mg QAM MARV Administration Famotidine 20 mg 11/22/19 09:00 11/24/19 09:49 Pepcid SLOW IVP 20 mg DAILY MARV Administration Gabapentin 600 mg 11/22/19 21:00 11/23/19 20:18 Neurontin PO 600 mg HS MARV Administration Lisinopril/HCTZ 1 tab 11/23/19 09:00 11/24/19 09:47 Prinizide 10-12.5 PO 1 tab QAM MARV Administration Cefazolin Sodium/Dextrose 2 gm 50 mls @ 100 mls/hr 11/21/19 18:00 11/24/19 11 :23 / Device IVPB 50 mls 0200,1000,1800 MARV Administration Sodium Chloride 1,000 mls @ 75 mls/hr 11/21/19 17:15 11/24/19 11:23 Normal Saline 0.9% IV Not Given .[id number] MARV Loperamide HCl 2 mg 11/22/19 20:30 11/24/19 11:28 Imodium PO 2 mg PRN PRN Administration Diarrhea/Loose Stools Pantoprazole Sodium 40 mg 11/23/19 09:00 11/24/19 09:48 Protonix PO 40 mg DAILY MARV Administration Sodium Chloride 10 ml 11/21/19 17:15 11/23/19 11:40 Flush - Normal Saline IVF 10 ml PRN PRN Administration Saline Flush Tizanidine HCl 4 mg 11/21/19 17:15 11/24/19 14:40 Zanaflex PO 4 mg Q6H PRN Administration Muscle Spasm - Exam General - other findings: Morbid obesity Eye: anicteric sclera ENT: moist mucosa Neck: supple Heart: RRR, no rubs Respiratory: CTAB Gastrointestinal: soft, non-tender Neurological: no focal deficits Psychiatric: normal affect, normal behavior Hosp A/P (1) Diarrhea Code(s): R19.7 - DIARRHEA, UNSPECIFIED Status: Acute (2) HTN (hypertension) Code(s): I10 - ESSENTIAL (PRIMARY) HYPERTENSION Status: Chronic (3) PTSD (post-traumatic stress disorder) Code(s): F43.10 - POST-TRAUMATIC STRESS DISORDER, UNSPECIFIED Status: Chronic (4) GERD (gastroesophageal reflux disease) Code(s): K21.9 - GASTRO-ESOPHAGEAL REFLUX DISEASE WITHOUT ESOPHAGITIS Status: Chronic - Plan Diarrhea improved. Continue Imodium PRN. HTN controlled. Ambulate pt.
[2019-11-24] MEDS: Dexamethasone 4 MG TAB PO SCH ×2 (18:25→23:16)
[2019-11-24] MEDS: Gabapentin 300 MG CAP PO SCH (20:04)
[2019-11-25] MEDS: Sodium Chloride 0.9% 1,000 ML IV SCH (00:26)
[2019-11-25] MEDS: CEFAZOLIN 2 GM in Premix Bag 1 BAG IVPB SCH (01:21)
[2019-11-25] MEDS: Dexamethasone 4 MG TAB PO SCH (06:29)
[2019-11-25 08:01] VITALS: BP 145/93; TEMP 97.9
[2019-11-25] MEDS: Lisinopril/Hydrochlorothiazide 10 mg/12.5 mg Tablet PO SCH (08:39)
[2019-11-25] MEDS: Famotidine/PF 20 mg/2ml Vial SLOW IVP SCH (08:40)
[2019-11-25] MEDS: Escitalopram Oxalate 10 mg Tablet PO SCH (08:40)
--- NOTE | 2019-11-25 10:18 | PRG ---
DATE OF SERVICE: 11/25/2019 Mr. Mendez continues to do very well following evacuation of his thoracic epidural hematoma. He is ambulating. He does have urinary retention. I have recommended he be discharged with an indwelling Paiz catheter and follow up next week at the [facility] in [place]. He will do this. We were very pleased with how he has done. His wounds are healing well and he is very excited about his future. He has already lost 25 pounds. Job ID: [id number]
[2019-11-25] MEDS ORDERED: Dexamethasone 1 MG TAB PO SCH (18:00)
[2019-11-26] MEDS ORDERED: Dexamethasone 1 MG TAB PO SCH (18:00)
[2019-11-27] MEDS ORDERED: Dexamethasone 1 MG TAB PO SCH (18:00)
== END 2019-11-25 12:05 | disposition home or self-care (01) | DRG 908 ==
LOC: ERS 09:07 → SURG B 16:19 → SDC/OP 17:29 → CCU 18:19 → SURG B 11-22 11:26
PROVIDERS: ADMIT Neurological Surgery; ATTEND Neurological Surgery
PROC: 00CU0ZZ Extirpation of Matter from Spinal Canal, Open Approach (ICD-10-PCS; principal; 2019-11-21)
DX: G97.62 Postprocedural hematoma of a nervous system organ or structure following other procedure (principal); G95.20 Unspecified cord compression; Z68.41 Body mass index [BMI] 40.0-44.9, adult; Y83.8 Other surgical procedures as the cause of abnormal reaction of the patient, or of later complication, without mention of misadventure at the time of the procedure; I10 Essential (primary) hypertension; K21.9 Gastro-esophageal reflux disease without esophagitis; M48.061 Spinal stenosis, lumbar region without neurogenic claudication; G89.29 Other chronic pain; E78.5 Hyperlipidemia, unspecified; F43.10 Post-traumatic stress disorder, unspecified; E66.9 Obesity, unspecified; G47.33 Obstructive sleep apnea (adult) (pediatric); E11.9 Type 2 diabetes mellitus without complications; F17.210 Nicotine dependence, cigarettes, uncomplicated
CPT/HCPCS: 36415; 36416; 72157; 72158; 80053; 85025; 85610; 85730; 86850; 86900; 86901; 87324; 87449; A9579; J0690; J1100; J2001; J2060; J2405; J2704; J3010; J3370; J3490; J8540; S0028

== ENCOUNTER 2020-02-29 21:49 | Emergency (ER) | payer OTHER ==
[2020-02-29 22:51] LABS: #Basophils 0.1 thou/uL (0.0-0.2); #Eosinphils 0.1 thou/uL (0.0-0.7); #Lymphocytes 1.4 thou/uL (1.20-3.40); #Monocytes 0.9 thou/uL (0.11-0.59); #Neutrophils 9.3 thou/uL (1.40-6.50); %Basophils 0.7 % (0.0-1.0); %Eosinophils 0.8 % (0.0-10.0); %Lymphocytes 12.1 % (21.0-51.0); %Monocytes 7.9 % (0.0-10.0); %Neutrophils 78.6 % (42.0-75.0); Hemoglobin 16.4 g/dL (14.0-18.0); Mean Corpuscular Volume 83.9 fL (78.0-98.0); Mean Platelet Volume 7.3 fL (7.4-10.4); Platelet Count 331 thou/uL (130-400); RBC Distribution Width 13.9 % (11.5-14.5); Red Blood Cell (RBC) Count 6.29 mill/uL (4.70-6.10); White Blood Cell (WBC) Count 11.8 thou/uL (4.8-10.8)
--- NOTE | 2020-02-29 22:55 | RAD ---
CHEST ONE VIEW: History: Altered mental status this evening Comparison: 09-17-19 FINDINGS: Heart size is mildly enlarged. No pneumothorax or effusion. No airspace consolidation. IMPRESSION: Mild cardiomegaly, otherwise no acute intrathoracic abnormality. POS: HOME
[2020-02-29] MEDS ORDERED: Pantoprazole 40 MG VIAL ONE (22:59)
[2020-02-29 23:11] LABS: ALT (SGPT) 50 U/L (8-55); AST (SGOT) 30 U/L (5-34); Albumin 4.7 g/dL (3.5-5.0); Alkaline Phosphatase 139 U/L (40-110); Anion Gap 17 mmol/L (10-20); BUN (Urea Nitrogen) 15 mg/dL (8.9-20.6); Bilirubin, Total 0.5 mg/dL (0.2-1.2); Calc. Creatinine Clearance 0 mL/min (70-130); Carbon Dioxide 21 mmol/L (22-29); Chloride 107 mmol/L (98-107); Estimated GFR-MDRD 74; Globulin 3.5 g/dL (2.4-3.5); Glucose 106 mg/dL (70-105); Potassium 4.6 mmol/L (3.5-5.1); Protein, Total 8.2 g/dL (6.0-8.3); Sodium 140 mmol/L (136-145)
[2020-02-29 23:33] LABS: Bacteria/HPF None Seen HPF (None Seen); Bilirubin Negative (Negative); Blood, Urine Negative (Negative); Clarity Turbid (Clear); Glucose, Urine (Dipstick) Normal (Negative); Leukocyte Negative Leu/uL (Negative); Nitrite Negative (Negative); Protein, Urine (Dipstick) 300 mg/dL (Neg-Trace); RBC/HPF 0-3 HPF (0-3); WBC/HPF 0-3 HPF (0-3)
== END 2020-03-01 00:39 | disposition home or self-care (01) ==
LOC: ERS 21:49
DX: K25.4 Chronic or unspecified gastric ulcer with hemorrhage (principal); E86.0 Dehydration; K21.9 Gastro-esophageal reflux disease without esophagitis; E11.9 Type 2 diabetes mellitus without complications; E78.5 Hyperlipidemia, unspecified; I10 Essential (primary) hypertension; F41.9 Anxiety disorder, unspecified; F43.10 Post-traumatic stress disorder, unspecified; Z87.891 Personal history of nicotine dependence; Z79.899 Other long term (current) drug therapy
CPT/HCPCS: 71045; 80053; 81003; 81015; 82274; 84484; 85025; 86850; 86900; 86901; 93005; 94760; 96361; 96374; C9113

== ENCOUNTER 2021-10-22 00:56 | Inpatient (IN) | payer OTHER ==
[2021-10-22] MEDS ORDERED: Ondansetron ODT 4 MG TAB PO PRN (02:38)
[2021-10-22] MEDS ORDERED: Ondansetron PF 4 MG/2 ML Vial IVP PRN (02:38)
[2021-10-22] MEDS ORDERED: Acetaminophen 650 MG Suppository PR PRN (02:38)
[2021-10-22] MEDS ORDERED: Acetaminophen 325 MG TAB PO PRN (02:38)
[2021-10-22 03:09] LABS: CO2 Tension 45.5 mmHg (35.0-45.0); Carboxyhemoglobin (COHb) 0.9 gm% (0.0-3.0); Hemoglobin (Hb) 13.7 g/dL (14.0-18.0); O2 Tension (PaO2), arterial 98.1 mmHg (80.0-100.0); Potassium - ABG Lab 3.63 mmol/L (3.70-5.30); pH, Arterial 7.34 (7.35-7.45)
[2021-10-22 03:22] LABS: Calcium, Ionized (arterial) 1.15 mmol/L (1.12-1.30)
[2021-10-22 03:23] LABS: Puncture Site RRA
[2021-10-22 03:25] LABS: ALV-art Gradient 130.225 mmHg (0-20)
[2021-10-22 04:07] LABS: #Basophils 0.1 thou/uL (0.0-0.2); #Eosinphils 0.4 thou/uL (0.0-0.7); #Monocytes 0.6 thou/uL (0.11-0.59); #Neutrophils 2.9 thou/uL (1.40-6.50); %Eosinophils 6.7 % (0.0-10.0); %Lymphocytes 33.2 % (21.0-51.0); %Monocytes 10.4 % (0.0-10.0); %Neutrophils 48.7 % (42.0-75.0); Hemoglobin 13.2 g/dL (14.0-18.0); Mean Corpuscular HGB CONC 33.1 g/dL (32.0-36.0); Mean Corpuscular Hemoglobin 28.7 pg (27.0-31.0); Mean Corpuscular Volume 86.8 fL (78.0-98.0); Mean Platelet Volume 7.3 fL (7.4-10.4); Platelet Count 187 thou/uL (130-400); RBC Distribution Width 13.6 % (11.5-14.5); Red Blood Cell (RBC) Count 4.61 mill/uL (4.70-6.10)
[2021-10-22] MEDS: Potassium Chloride 20 MEQ in Premix Bag 1 BAG IVPB SCH ×2 (04:17→05:43)
[2021-10-22 04:30] VITALS: BMI 43.3
[2021-10-22 04:33] LABS: Anion Gap 11 mmol/L (10-20); BUN (Urea Nitrogen) 11 mg/dL (8.9-20.6); Calc. Creatinine Clearance 229 mL/min (70-130); Calcium 8.4 mg/dL (7.8-10.44); Carbon Dioxide 23 mmol/L (22-29); Chloride 106 mmol/L (98-107); Glucose 102 mg/dL (70-105); Potassium 3.7 mmol/L (3.5-5.1); Sodium 136 mmol/L (136-145)
[2021-10-22] MEDS ORDERED: Dextrose 5% in Water 1,000 ML IV PRN (05:13)
[2021-10-22] MEDS ORDERED: HumaLOG 300 UNITS/3 ML VIAL SC PRN ×2 (05:13)
[2021-10-22] MEDS ORDERED: Dextrose 50% Abboject 50 ML SYRINGE SLOW IVP PRN (05:13)
[2021-10-22] MEDS ORDERED: Enoxaparin Sodium 40 MG/0.4 ML SYRINGE SC SCH (09:00)
[2021-10-22 11:50] VITALS: TEMP 97.1
[2021-10-25] MEDS ORDERED: FLU VACC QS2021-22(6MOS UP)/PF 60 MCG/0.5 ML SYRINGE IM ONE (09:00)
== END 2021-10-22 13:15 | disposition home or self-care (01) | DRG 189 ==
LOC: 2SW 02:03 → OBSVTOIN 02:40 → IMCU/EMU 03:52
PROVIDERS: ADMIT Student in an Organized Health Care Education/Training Program; ATTEND Hospitalist
DX: J96.01 Acute respiratory failure with hypoxia (principal); G93.40 Encephalopathy, unspecified; E66.01 Morbid (severe) obesity due to excess calories; K21.9 Gastro-esophageal reflux disease without esophagitis; F43.10 Post-traumatic stress disorder, unspecified; G47.33 Obstructive sleep apnea (adult) (pediatric); G89.29 Other chronic pain; E11.9 Type 2 diabetes mellitus without complications; I10 Essential (primary) hypertension; E78.5 Hyperlipidemia, unspecified; Z68.41 Body mass index [BMI] 40.0-44.9, adult; Z91.19 Patient's noncompliance with other medical treatment and regimen; Z79.84 Long term (current) use of oral hypoglycemic drugs; Z79.899 Other long term (current) drug therapy
CPT/HCPCS: 36415; 36416; 36600; 80048; 82140; 82550; 82607; 82805; 85025; 94660; J3480

== ENCOUNTER 2022-02-05 18:07 | Inpatient (IN) | payer OTHER ==
[2022-02-05 22:55] VITALS: BMI 44.6
[2022-02-07 15:24] VITALS: BP 119/69; TEMP 97.8
== END 2022-02-07 17:45 | disposition home or self-care (01) | DRG 74 ==
LOC: ERS 18:07 → 2SW 22:35 → OBSVTOIN 02-06 13:04
PROVIDERS: ADMIT Student in an Organized Health Care Education/Training Program; ATTEND Internal Medicine
DX: E11.40 Type 2 diabetes mellitus with diabetic neuropathy, unspecified (principal); Z68.41 Body mass index [BMI] 40.0-44.9, adult; I48.92 Unspecified atrial flutter; Z20.822 Contact with and (suspected) exposure to COVID-19; R07.9 Chest pain, unspecified; G47.33 Obstructive sleep apnea (adult) (pediatric); E11.9 Type 2 diabetes mellitus without complications; I10 Essential (primary) hypertension; K21.9 Gastro-esophageal reflux disease without esophagitis; M47.816 Spondylosis without myelopathy or radiculopathy, lumbar region; E78.5 Hyperlipidemia, unspecified; E66.01 Morbid (severe) obesity due to excess calories; F43.10 Post-traumatic stress disorder, unspecified; F40.240 Claustrophobia; I48.0 Paroxysmal atrial fibrillation; Z99.89 Dependence on other enabling machines and devices; Z98.890 Other specified postprocedural states; Z87.891 Personal history of nicotine dependence
CPT/HCPCS: 36415; 36416; 70450; 71045; 72125; 72131; 80048; 80053; 82553; 83690; 83735; 83880; 84484; 85025; 85379; 93005; 93017; 93306; 93880; 96365; 96374; 96375; G0378; J1940; J3475; U0003; U0005

== ENCOUNTER 2022-06-20 13:39 | Outpatient (CLI) | payer OTHER ==
[2022-06-20 14:13] LABS: #Basophils 0.1 10x3/uL (0.0-0.2); #Eosinphils 0.4 10x3/uL (0.0-0.5); #Monocytes 0.8 10x3/uL (0.0-1.1); #Neutrophils 5.9 10x3/uL (1.5-8.4); %Eosinophils 3.7 % (0.0-6.0); %Lymphocytes 22.5 % (18.0-47.0); %Neutrophils 63.3 % (40.0-75.0); Hemoglobin 15.5 g/dL (13.5-17.5); Mean Corpuscular HGB CONC 32.8 g/dL (32.0-36.0); Mean Corpuscular Hemoglobin 27.3 pg (27.0-33.0); Mean Corpuscular Volume 83.4 fl (81.2-95.1); Mean Platelet Volume 9.6 fl (7.4-10.4); Platelet Count 245 10x3/uL (150-450); RBC Distribution Width 14.7 % (11.5-14.5); Red Blood Cell (RBC) Count 5.67 10x6/uL (4.32-5.72); White Blood Cell (WBC) Count 9.4 10x3/uL (3.5-10.5)
[2022-06-20 14:43] LABS: ALT (SGPT) 30 U/L (8-55); AST (SGOT) 23 U/L (5-34); Alkaline Phosphatase 111 U/L (40-110); Anion Gap 11 mmol/L (10-20); BUN (Urea Nitrogen) 13 mg/dL (8.9-20.6); Bilirubin, Total 0.5 mg/dL (0.2-1.2); Calc. Creatinine Clearance 0 mL/min (70-130); Calcium 9.1 mg/dL (7.8-10.44); Carbon Dioxide 29 mmol/L (22-29); Chloride 105 mmol/L (98-107); Estimated GFR 107; Globulin 3.5 g/dL (2.4-3.5); Glucose 124 mg/dL (70-105); Potassium 4.5 mmol/L (3.5-5.1); Protein, Total 7.5 g/dL (6.0-8.3); Sodium 140 mmol/L (136-145)
== END 2022-06-20 13:40 | disposition home or self-care (01) ==
LOC: LABBT 13:39
PROVIDERS: ATTEND Internal Medicine Cardiovascular Disease
DX: Z01.812 Encounter for preprocedural laboratory examination (principal); Z20.822 Contact with and (suspected) exposure to COVID-19
CPT/HCPCS: 80053; 85025; 87811

== ENCOUNTER → 2022-06-27 | Day surgery (SDC) | payer OTHER ==
[2022-06-26 10:01] VITALS: BMI 45.6
[~2022-06-27] MED LIST: Fentanyl 100 MCG/2 ML VIAL ONE; Heparin 10,000 UNITS/ 10 ML VIAL ONE; Iopamidol 370 76% 100 ML VIAL ONE; Lidocaine 1% PF 5 ML VIAL ONE; Metoprolol Tartrate 5 MG/5 ML VIAL ONE; Midazolam HCl 2 mg/2 ml Vial ONE; Nitroglycerin 100MG/250ML BOT 250 ML ONE; hydrALAZINE 20 MG/ML VIAL ONE
== END | disposition home or self-care (01) ==
LOC: CCL 06:20
PROVIDERS: ATTEND Internal Medicine Cardiovascular Disease
PROC: 4A023N7 Measurement of Cardiac Sampling and Pressure, Left Heart, Percutaneous Approach (ICD-10-PCS; principal; 2022-06-27)
PROC: B2111ZZ Fluoroscopy of Multiple Coronary Arteries using Low Osmolar Contrast (ICD-10-PCS; principal; 2022-06-27)
DX: R07.89 Other chest pain (principal); I11.0 Hypertensive heart disease with heart failure; I50.9 Heart failure, unspecified; E11.9 Type 2 diabetes mellitus without complications; E78.00 Pure hypercholesterolemia, unspecified; G47.33 Obstructive sleep apnea (adult) (pediatric); I48.0 Paroxysmal atrial fibrillation; F17.200 Nicotine dependence, unspecified, uncomplicated; I48.92 Unspecified atrial flutter; K21.9 Gastro-esophageal reflux disease without esophagitis; G89.29 Other chronic pain; M54.9 Dorsalgia, unspecified; E66.01 Morbid (severe) obesity due to excess calories; Z68.42 Body mass index [BMI] 45.0-49.9, adult; Z82.49 Family history of ischemic heart disease and other diseases of the circulatory system; Z79.01 Long term (current) use of anticoagulants; Z79.84 Long term (current) use of oral hypoglycemic drugs; Z79.899 Other long term (current) drug therapy
CPT/HCPCS: 93458; C1769; C1894; J0360; J1644; J2250; J3010; Q9967

== ENCOUNTER 2023-07-05 16:11 | Inpatient (IN) | payer OTHER ==
[2023-07-05 17:03] LABS: #Basophils 0.1 thou/uL (0.0-0.2); #Eosinphils 0.1 thou/uL (0.0-0.7); #Monocytes 1.6 thou/uL (0.11-0.59); #Neutrophils 11.6 thou/uL (1.40-6.50); %Basophils 0.5 % (0.0-1.0); %Eosinophils 0.8 % (0.0-10.0); %Lymphocytes 10.1 % (21.0-51.0); %Monocytes 10.5 % (0.0-10.0); %Neutrophils 77.4 % (42.0-75.0); Hemoglobin 15.3 g/dL (14.0-18.0); Mean Corpuscular HGB CONC 31.9 g/dL (32.0-36.0); Mean Corpuscular Hemoglobin 27.7 pg (27.0-31.0); Mean Platelet Volume 9.7 fL (7.4-10.4); Platelet Count 219 10x3/uL (130-400); RBC Distribution Width 14.6 % (11.5-14.5); Red Blood Cell (RBC) Count 5.52 mill/uL (4.70-6.10)
[2023-07-05 17:31] LABS: ALT (SGPT) 32 U/L (8-55); AST (SGOT) 34 U/L (5-34); Alkaline Phosphatase 126 U/L (40-110); Anion Gap 13 mmol/L (10-20); BUN (Urea Nitrogen) 29 mg/dL (8.9-20.6); Bilirubin, Total 0.6 mg/dL (0.2-1.2); Calc. Creatinine Clearance 0 mL/min (70-130); Calcium 9.9 mg/dL (7.8-10.44); Carbon Dioxide 28 mmol/L (22-29); Chloride 101 mmol/L (98-107); Estimated GFR 28; Glucose 122 mg/dL (70-105); Potassium 4.6 mmol/L (3.5-5.1); Sodium 137 mmol/L (136-145)
[2023-07-05 19:18] LABS: Troponin I 0.013 ng/mL (< 0.028)
[2023-07-05] MEDS ORDERED: Ondansetron PF 4 MG/2 ML Vial IVP PRN (21:00)
[2023-07-05] MEDS ORDERED: Ondansetron ODT 4 MG TAB SL PRN (21:00)
[2023-07-05] MEDS ORDERED: Acetaminophen 325 MG TAB PO PRN (21:00)
[2023-07-05] MEDS ORDERED: hydrALAZINE 25 MG TAB PO PRN (21:30)
[2023-07-05] MEDS ORDERED: Sodium Chloride 0.9% 1,000 ML IV SCH (21:45)
[2023-07-05] MEDS ORDERED: cefTRIAXone\\ROCEPHIN 1 GM in Sodium Chloride 0.9% 100 ML IVPB SCH (22:00)
[2023-07-05 22:33] LABS: Troponin I Less than 0.010 ng/mL (< 0.028)
[2023-07-05 23:49] VITALS: BMI 45.1
[2023-07-05] MEDS ORDERED: Sodium Chloride 0.9% 500 ML IV SCH (23:59)
[2023-07-06 00:14] LABS: Magnesium 1.8 mg/dL (1.6-2.6)
[2023-07-06 01:10] LABS: Troponin I 0.016 ng/mL (< 0.028)
[2023-07-06 01:56] LABS: Bacteria/HPF None Seen HPF (None Seen); Bilirubin Negative (Negative); Blood, Urine Negative (Negative); Clarity Clear (Clear); Glucose, Urine (Dipstick) Greater than 1000 mg/dL (Negative); Ketone, Urine Negative (Negative); Leukocyte Negative Leu/uL (Negative); Nitrite Negative (Negative); Protein, Urine (Dipstick) Negative (Neg-Trace); RBC/HPF None Seen HPF (0-3); Squamous Epithelial 0-3 HPF (0-3); Urobilinogen Normal mg/dL (Less than 2); WBC/HPF 0-3 HPF (0-3); pH, Urine 5.5 (5.0-9.0)
[2023-07-06] MEDS ORDERED: Metoprolol Tartrate 5 MG/5 ML VIAL IVP SCH (02:15)
[2023-07-06] MEDS ORDERED: Magnesium 2 GM/50 ML(in water) 2 GM in Premix Bag 1 BAG IVPB SCH (02:30)
[2023-07-06] MEDS ORDERED: Sodium Chloride 0.9% 250 ML IV SCH (04:00)
[2023-07-06] MEDS ORDERED: Ondansetron PF 4 MG/2 ML Vial IVP PRN (08:27)
[2023-07-06] MEDS ORDERED: Acetaminophen 325 MG TAB PO PRN (08:27)
[2023-07-06] MEDS ORDERED: Apixaban 5 MG TAB PO SCH (09:00)
[2023-07-06] MEDS ORDERED: Famotidine 20 MG TAB PO SCH (09:00)
[2023-07-06] MEDS ORDERED: Metoprolol Tartrate 25 MG TAB PO SCH (09:00)
[2023-07-06 11:20] LABS: Anion Gap 12 mmol/L (10-20); BUN (Urea Nitrogen) 26 mg/dL (8.9-20.6); Calc. Creatinine Clearance 124 mL/min (70-130); Carbon Dioxide 20 mmol/L (22-29); Chloride 106 mmol/L (98-107); Estimated GFR 61; Glucose 273 mg/dL (70-105); Potassium 5.2 mmol/L (3.5-5.1); Sodium 133 mmol/L (136-145)
[2023-07-06] MEDS ORDERED: Insulin Regular 300 UNITS/3 ML VIAL IVP SCH (12:00)
[2023-07-06] MEDS ORDERED: Dextrose 50% Abboject 50 ML SYRINGE SLOW IVP SCH (12:00)
[2023-07-06 12:44] VITALS: BP 159/99; TEMP 98.5
[2023-07-06] MEDS ORDERED: Atorvastatin Calcium 20 MG TAB PO SCH (21:00)
== END 2023-07-06 15:20 | disposition home or self-care (01) | DRG 641 ==
LOC: ERS 16:11 → 2NO 19:59
PROVIDERS: ADMIT Internal Medicine Nephrology; ATTEND Internal Medicine
DX: E86.0 Dehydration (principal); N17.9 Acute kidney failure, unspecified; T67.01XA Heatstroke and sunstroke, initial encounter; Z68.42 Body mass index [BMI] 45.0-49.9, adult; I95.9 Hypotension, unspecified; K21.9 Gastro-esophageal reflux disease without esophagitis; G89.29 Other chronic pain; E78.5 Hyperlipidemia, unspecified; E11.9 Type 2 diabetes mellitus without complications; F41.9 Anxiety disorder, unspecified; Z79.899 Other long term (current) drug therapy; I10 Essential (primary) hypertension; I25.10 Atherosclerotic heart disease of native coronary artery without angina pectoris; Z98.890 Other specified postprocedural states; I48.91 Unspecified atrial fibrillation; E66.01 Morbid (severe) obesity due to excess calories
CPT/HCPCS: 36415; 70450; 71045; 72125; 76770; 80048; 80053; 81001; 82550; 83735; 84443; 84484; 85025; 93005; 93010; 93880; 96360; 96361; J0696; J3475; J3490; J7030; J7050

== ENCOUNTER 2024-05-14 10:08 | Inpatient (IN) | payer OTHER ==
[2024-05-14 10:42] LABS: #Basophils 0.05 10x3/uL (0.0-0.2); %Basophils 0.5 % (0.0-1.0); %Eosinophils 2.5 % (0.0-10.0); %Lymphocytes 19.7 % (21.0-51.0); %Neutrophils 66.8 % (42.0-75.0); Hematocrit 52.1 % (42.0-52.0); Hemoglobin 16.4 g/dL (14.0-18.0); Mean Corpuscular HGB CONC 31.5 g/dL (32.0-36.0); Mean Corpuscular Hemoglobin 27.7 pg (27.0-31.0); Mean Corpuscular Volume 87.9 fL (78.0-98.0); Mean Platelet Volume 9.8 fL (7.4-10.4); Platelet Count 257 10x3/uL (130-400); RBC Distribution Width 14.7 % (11.5-14.5); Red Blood Cell (RBC) Count 5.93 mill/uL (4.70-6.10)
[2024-05-14 10:58] LABS: ALT (SGPT) 39 U/L (8-55); AST (SGOT) 30 U/L (5-34); Albumin 3.6 g/dL (3.5-5.0); Alkaline Phosphatase 111 U/L (40-110); Anion Gap 13 mmol/L (10-20); BUN (Urea Nitrogen) 15 mg/dL (8.9-20.6); Bilirubin, Total 0.7 mg/dL (0.2-1.2); Calc. Creatinine Clearance 0 mL/min (70-130); Calcium 9.4 mg/dL (7.8-10.44); Carbon Dioxide 21 mmol/L (22-29); Chloride 106 mmol/L (98-107); Estimated GFR 110; Globulin 4.6 g/dL (2.4-3.5); Glucose 95 mg/dL (70-105); Lipase 39 U/L (8-78); Potassium 4.8 mmol/L (3.5-5.1); Protein, Total 8.2 g/dL (6.0-8.3); Sodium 135 mmol/L (136-145)
[2024-05-14 11:04] LABS: Troponin I 0.018 ng/mL (< 0.028)
[2024-05-14] MEDS ORDERED: Glucagon 1 MG/ML KIT IM PRN (12:47)
[2024-05-14] MEDS ORDERED: Calcium Carbonate 500 MG ChewTAB PO PRN (12:47)
[2024-05-14] MEDS ORDERED: Dextrose 50% Abboject 50 ML SYRINGE SLOW IVP PRN (12:47)
[2024-05-14] MEDS ORDERED: Ondansetron PF 4 MG/2 ML Vial IVP PRN (12:47)
[2024-05-14] MEDS ORDERED: Ondansetron ODT 4 MG TAB PO PRN (12:47)
[2024-05-14] MEDS ORDERED: Senokot S 8.6-50 MG TAB PO PRN (12:47)
[2024-05-14] MEDS ORDERED: Nitroglycerin 0.4 MG TAB (25 Tab Bottle) SL PRN (12:47)
[2024-05-14] MEDS ORDERED: Acetaminophen 325 MG TAB PO PRN (12:47)
[2024-05-14] MEDS ORDERED: Acetaminophen 650 MG Suppository PR PRN (12:47)
[2024-05-14] MEDS ORDERED: Lorazepam 2 MG/ML VIAL SLOW IVP PRN (12:47)
[2024-05-14] MEDS ORDERED: Dextrose 5% in Water 1,000 ML IV PRN (12:47)
[2024-05-14 14:38] VITALS: BMI 45.9
[2024-05-14] MEDS: Aspirin Chewable 81 MG TAB PO SCH (15:40)
[2024-05-14 15:44] LABS: Magnesium 1.9 mg/dL (1.6-2.6)
[2024-05-14 15:49] LABS: Troponin I 0.018 ng/mL (< 0.028)
[2024-05-14 19:14] LABS: Troponin I 0.016 ng/mL (< 0.028)
[2024-05-14] MEDS: levETIRAcetam 500 MG TAB PO SCH (20:30)
[2024-05-14] MEDS: Metoprolol Tartrate 25 MG TAB PO SCH (20:30)
[2024-05-14] MEDS: Atorvastatin Calcium 20 MG TAB PO SCH (20:30)
[2024-05-14] MEDS: Famotidine 20 MG TAB PO SCH (20:30)
[2024-05-14] MEDS: Apixaban 5 MG TAB PO SCH (20:30)
[2024-05-15 07:36] LABS: #Basophils 0.05 10x3/uL (0.0-0.2); %Basophils 0.5 % (0.0-1.0); %Eosinophils 3.6 % (0.0-10.0); %Lymphocytes 20.8 % (21.0-51.0); %Monocytes 10.5 % (0.0-10.0); %Neutrophils 64.1 % (42.0-75.0); Hematocrit 50.7 % (42.0-52.0); Hemoglobin 15.7 g/dL (14.0-18.0); Mean Corpuscular Hemoglobin 27.4 pg (27.0-31.0); Mean Corpuscular Volume 88.3 fL (78.0-98.0); Mean Platelet Volume 10.2 fL (7.4-10.4); Platelet Count 247 10x3/uL (130-400); RBC Distribution Width 14.8 % (11.5-14.5); Red Blood Cell (RBC) Count 5.74 mill/uL (4.70-6.10)
[2024-05-15 08:00] LABS: Anion Gap 14 mmol/L (10-20); BUN (Urea Nitrogen) 13 mg/dL (8.9-20.6); Calc. Creatinine Clearance 213 mL/min (70-130); Calcium 8.8 mg/dL (7.8-10.44); Carbon Dioxide 25 mmol/L (22-29); Chloride 106 mmol/L (98-107); Estimated GFR 109; Glucose 182 mg/dL (70-105); Potassium 4.6 mmol/L (3.5-5.1); Sodium 140 mmol/L (136-145)
[2024-05-15] MEDS: Aspirin Chewable 81 MG TAB PO SCH (08:08)
[2024-05-15] MEDS ORDERED: Adenosine 90 mg (30 mL) VIAL ONE (10:17)
[2024-05-15] MEDS ORDERED: Regadenoson 0.4 MG/5 ML SYRINGE ONE (10:32)
[2024-05-15] MEDS: Lisinopril 20 MG TAB PO SCH (12:27)
[2024-05-15] MEDS: Insulin Lispro 100 UNIT/ML 10 ML VIAL SC PRN (20:37)
[2024-05-16] MEDS: Insulin Lispro 100 UNIT/ML 10 ML VIAL SC PRN (17:38)
[2024-05-17] MEDS ORDERED: PROPOFOL 40 ML ONE (08:01)
[2024-05-17] MEDS ORDERED: Midazolam HCl 2 mg/2 ml Vial ONE (08:02)
[2024-05-17 20:32] LABS: Amphetamine Not Detected (NotDetected); Barbiturates Screen Not Detected (NotDetected); Benzodiazepine Screen Not Detected (NotDetected); Cocaine Metabolite Screen Not Detected (NotDetected); Methadone Not Detected (NotDetected); Methamphetamine Not Detected (NotDetected); Opiate Screen Not Detected (NotDetected); Oxycodone Screen Not Detected (NotDetected); Phencyclidine (PCP) Not Detected (NotDetected); THC/Cannabinoid Screen Not Detected (NotDetected); Tricyclic Screen Not Detected (NotDetected)
[2024-05-18 04:35] LABS: #Basophils 0.03 10x3/uL (0.0-0.2); %Basophils 0.4 % (0.0-1.0); %Eosinophils 3.3 % (0.0-10.0); %Lymphocytes 19.7 % (21.0-51.0); %Monocytes 10.5 % (0.0-10.0); %Neutrophils 65.6 % (42.0-75.0); Hematocrit 51.4 % (42.0-52.0); Mean Corpuscular HGB CONC 31.1 g/dL (32.0-36.0); Mean Corpuscular Hemoglobin 27.5 pg (27.0-31.0); Mean Corpuscular Volume 88.3 fL (78.0-98.0); Mean Platelet Volume 9.7 fL (7.4-10.4); Platelet Count 220 10x3/uL (130-400); RBC Distribution Width 14.5 % (11.5-14.5); Red Blood Cell (RBC) Count 5.82 mill/uL (4.70-6.10)
[2024-05-18 04:56] LABS: Anion Gap 11 mmol/L (10-20); BUN (Urea Nitrogen) 13 mg/dL (8.9-20.6); Calc. Creatinine Clearance 192 mL/min (70-130); Calcium 9.2 mg/dL (7.8-10.44); Carbon Dioxide 30 mmol/L (22-29); Chloride 101 mmol/L (98-107); Estimated GFR 106; Glucose 261 mg/dL (70-105); Magnesium 1.9 mg/dL (1.6-2.6); Potassium 4.4 mmol/L (3.5-5.1); Sodium 138 mmol/L (136-145)
[2024-05-18 05:00] LABS: ALT (SGPT) 33 U/L (8-55); AST (SGOT) 17 U/L (5-34); Albumin 3.4 g/dL (3.5-5.0); Alkaline Phosphatase 120 U/L (40-110); Bilirubin, Direct 0.1 mg/dL (0.1-0.3); Bilirubin, Total 0.5 mg/dL (0.2-1.2); Protein, Total 7.2 g/dL (6.0-8.3)
[2024-05-18] MEDS: Pantoprazole DR 40 MG TAB PO SCH (09:30)
[2024-05-18 11:45] LABS: Actual Bicarbonate (HCO3v) 26.5 mEq/L (22-28); Calcium, Ionized (venous) 1.12 mmol/L (1.16-1.32); Chloride (VBG) 98 mmol/L (98-106); Hematocrit-VBG 49 % (42.0-52.0); Hemoglobin (Hb) 16.6 g/dL (13.1-17.2); Sodium 138 mmol/L (133-146); pH (venous) 7.347 (7.32-7.43)
[2024-05-18 16:20] LABS: Hemoglobin A1c 8.5 % (4.0-6.0)
[2024-05-18 17:26] VITALS: BP 173/98; TEMP 97.8
== END 2024-05-18 17:26 | disposition home or self-care (01) | DRG 92 ==
LOC: ERS 10:08 → ERHOLD 11:48 → 2SW 14:36 → OBSVTOIN 05-16 16:43
PROVIDERS: ADMIT Hospitalist; ATTEND Family Medicine
PROC: 4A00X4Z Measurement of Central Nervous Electrical Activity, External Approach (ICD-10-PCS; principal; 2024-05-15)
DX: G47.419 Narcolepsy without cataplexy (principal); Z68.41 Body mass index [BMI] 40.0-44.9, adult; R07.89 Other chest pain; E11.65 Type 2 diabetes mellitus with hyperglycemia; I10 Essential (primary) hypertension; G47.33 Obstructive sleep apnea (adult) (pediatric); I48.91 Unspecified atrial fibrillation; E78.5 Hyperlipidemia, unspecified; K21.9 Gastro-esophageal reflux disease without esophagitis; I25.2 Old myocardial infarction; Z79.82 Long term (current) use of aspirin; Z79.01 Long term (current) use of anticoagulants; Z79.4 Long term (current) use of insulin; Z79.899 Other long term (current) drug therapy; Z87.891 Personal history of nicotine dependence; E66.9 Obesity, unspecified
CPT/HCPCS: 36415; 36416; 70450; 70551; 71045; 78452; 80048; 80053; 80076; 80306; 82805; 83036; 83690; 83735; 83880; 84443; 84484; 85025; 93005; 93017; 93306; 94760; 95816; 95819; A9502; G0378; J0153; J1815; J2250; J2704; J2785